=== PATIENT | female | born 1965 | race Caucasian/White ===

== ENCOUNTER 2020-03-07 09:56 | Outpatient (REF) | payer OTHER, SELFPAY ==
[2020-03-07 10:21] LABS: COVID-19 Test Negative (Negative)
== END 2020-03-07 09:57 | disposition home or self-care (01) ==
LOC: HO.LAB 09:56
PROVIDERS: Visit Provider Internal Medicine
DX: Z20.828 Contact with and (suspected) exposure to other viral communicable diseases (principal)
CPT/HCPCS: 87635

== ENCOUNTER → 2020-03-22 10:17 | Outpatient (BNVA) | payer OTHER, SELFPAY | PROVIDERS: PCP Internal Medicine; Visit Provider Nurse Practitioner Family | DX: R06.02 Shortness of breath (principal); R00.2 Palpitations; I49.3 Ventricular premature depolarization; J45.909 Unspecified asthma, uncomplicated | CPT/HCPCS: 93005 ==

== ENCOUNTER 2020-04-01 10:38 | Outpatient (REF) | payer OTHER, SELFPAY ==
[2020-04-01 10:57] LABS: COVID-19 Test Positive (Negative)
== END 2020-04-01 10:39 | disposition home or self-care (01) ==
LOC: HO.LAB 10:38
PROVIDERS: PCP Internal Medicine; Visit Provider Internal Medicine
DX: Z20.828 Contact with and (suspected) exposure to other viral communicable diseases (principal)
CPT/HCPCS: 87635; C9803

== ENCOUNTER → 2020-04-22 14:34 | Outpatient (REF) | payer OTHER, SELFPAY ==
--- NOTE | 2020-04-22 14:44 | CA_ITS ---
Transthoracic Echocardiogram Patient (Last, First, Middle): Marly Lemus, Gender: Female Date of : 1965 Age: 55 Procedure Date: 04/22/2020 Procedure Type: Transthoracic Echocardiogram Location: OP Height: 177.8 cm Weight: 79.38 kg BSA: 1.97 m2 Heart Rate: bpm BP: 110 / 70 mmHg Research Assistant: SLOANE Referring MD: Lizbeth Josue END WORKERZay Symptoms: R06.02 - Shortness of breath Study Quality: Good Conclusions: - Normal left ventricular size and systolic function. - Diastolic function is normal for age. - Normal right ventricular cavity size and systolic function. - There is moderate mitral annular calcification. - Mildly elevated right atrial pressure. - There is mild dilatation of the ascending aorta. Findings Left Ventricle Normal left ventricular size and systolic function. There is mildly increased left ventricular wall thickness. The visually estimated ejection fraction is between 55-60%. There is no evidence of regional wall motion abnormalities. Diastolic function is normal for age. Right Ventricle Normal right ventricular cavity size and systolic function. Atria Both atria are normal in size. There is no evidence of interatrial shunt by color Doppler. Aortic Valve There is a normal trileaflet aortic valve. There is no aortic valve stenosis. There is trace (trivial) aortic valve regurgitation. Mitral Valve There is moderate mitral annular calcification. There is trace mitral valve regurgitation. There is no mitral valve stenosis. Pulmonic Valve Normal pulmonic valve structure and function. There is trace pulmonic valve regurgitation. Tricuspid Valve Normal tricuspid valve structure and function. There is trace tricuspid valve regurgitation. Mildly elevated right atrial pressure. There is no evidence of pulmonary hypertension. Great Vessels There is mild dilatation of the ascending aorta. The visualized portions of the pulmonary artery and branches are normal. Venous The inferior vena cava is dilated and collapses greater than 50% with inspiration. Pericardium/Pleural There is no evidence of pericardial effusion. Prior Study Comparison Changes noted compared to prior study dated: 11/01/2014. Mild dilation of ascending aorta. Mildly increased left ventricular wall thickness. Measurements 2D Linear Measurements IVSd: 0.93 0.6-0.9/0.6-1.0 cm LVIDd: 4.62 3.9-5.3/4.2-5.9 cm LVIDd Index: 2.35 2.4-3.2/2.2-3.1 cm/m2 LVIDs: 2.68 2.0-3.6 cm LVPWd: 0.89 0.7-1.1 cm Ao Root: 3.50 2.1-3.5 cm LA Diam: 3.30 2.7-3.8/3.0-4.0 cm LAIDs Index: 1.68 1.5-2.3 cm/m2 LV Mass: 174.70 67-162/88-224 g LV Mass Index: 88.68 43-95/49-115 g/m2 LVOT Diam: 2.20 3.0+(-)1.3 cm Mitral Valve MV Pk E: 0.96 MV PK A: 0.67 MV Decel Time: 322.00 E/A: 1.40 E'Lateral: 10.80 E'Medial: 8.99 E/E' Med: 10.70 E/E' Lat: 8.90 PHT: 94.00 MVA PHT: 2.34 Decel [place]: 2.98 Aortic Valve AoV Pk Quinn: 1.29 AoV Mn Quinn: 0.85 AoV VTI: 0.33 AoV Pk Grad: 7.00 Aov Mn Grad: 3.00 MARITZA Cont.VTI: 2.90 LVOT LVOT Pk Quinn: 1.25 LVOT Mn Quinn: 0.71 LVOT VTI: 0.25 LVOT Pk Grad: 6.00 LVOT Mn Grad: 3.00 LVOT Diam: 2.20 LVOT Area: 3.80 Diastolic Function MV Pk E: 0.96 MV Pk A: 0.67 E/A: 1.40 E'Medial: 8.99 E/E' Med: 10.70 E' Laterial: 10.80 E/E' Lat: 8.90 Tricuspid Valve TR Pk Quinn: 1.87 TR Pk Grad: 14.00 RA Press: 15.00 RVSP: 29.00 Great Vessels Aorta Ao Root-2D: 3.50 2.0-3.7 cm Ao Asc: 3.70 2.1-3.4 cm Ao Arch: 3.20 Updated in Other Vendor System with Status of Final Jonathan Keller MD electronically signed on 04/24/2020 12:26:15 PM with status of Final
== END ==
LOC: HO.CARD 14:34
PROVIDERS: Visit Provider Nurse Practitioner Family
DX: R06.02 Shortness of breath (principal)
CPT/HCPCS: 93306

== ENCOUNTER → 2020-04-26 13:07 | Outpatient (REF) | payer OTHER, SELFPAY ==
--- NOTE | 2020-04-26 13:10 | ECG_ITS ---
Hook-up date: 2020-04-26 13:22:00 Duration: 24:05:00 Test Indications: Palpitations Medications: 11074 QRS complexes 1 Ventricular ectopics which represent <1 % of total QRS comp. 2 Supraventricular ectopics which represent <1 % of total QRS comp. * Paced QRS complexs which represent % of total QRS comp. VENTRICULAR ECTOPY 1 Isolated 0 Bigeminal Cycles 0 Couplets 0 Runs 0 Beats in Runs * Beats LONGEST at * BPM at :: -- * Beats FASTEST at * BPM at :: -- SUPRAVENTRICULAR ECTOPY 0 Isolated 1 Couplets 0 Runs 0 Beats in Runs * Beats LONGEST at * BPM at :: -- * Beats FASTEST at * BPM at :: -- HEART RATES 29 MIN at 04:52:13 2020-04-27 53 AVG 91 MAX at 15:04:17 2020-04-26 LONGEST RR 2.7440 secs at 05:45:22 2020-04-27 S-T LEVELS Channel 1 - 128 mm at 13:22:00 2020-04-26 - 128 mm at 13:22:00 2020-04-26 Channel 2 - 128 mm at 13:22:00 2020-04-26 - 128 mm at 13:22:00 2020-04-26 Channel 3 - 128 mm at 03:24:11 -- - 128 mm at 03:24:11 Basic rhythm Normal sinus rhythm Frequent Sinus bradycardia , 79% of time HR < 60 bpm Occasional Sinus bradycardia with 2nd degree A-V block (Mobitz II) , during sleep No dangerous dysrhythm periods No arrhythmic episodes Referred By: Cristofer Mathews Overread By: CRISTOFER MATHEWS MD
== END ==
LOC: HO.CARD 13:07
PROVIDERS: Visit Provider Internal Medicine Cardiovascular Disease
DX: R00.2 Palpitations (principal); R06.02 Shortness of breath
CPT/HCPCS: 93225; 93226

== ENCOUNTER 2020-05-02 12:51 | Outpatient (REF) | payer SELFPAY ==
[2020-05-02 15:27] LABS: SARS COV2 IgG Positive (Negative)
== END 2020-05-02 12:52 | disposition home or self-care (01) ==
LOC: HO.LNC 12:51
PROVIDERS: Visit Provider Pathology Anatomic Pathology & Clinical Pathology
DX: Z13.89 Encounter for screening for other disorder (principal)
CPT/HCPCS: 86769

== ENCOUNTER 2020-05-05 09:51 | Outpatient (REF) | payer SELFPAY ==
[2020-05-05 10:49] LABS: Cholesterol 190 mg/dL
== END 2020-05-05 09:52 | disposition home or self-care (01) ==
LOC: HO.LNC 09:51
PROVIDERS: Visit Provider Pathology Anatomic Pathology & Clinical Pathology
DX: Z00.00 Encounter for general adult medical examination without abnormal findings (principal); R79.89 Other specified abnormal findings of blood chemistry
CPT/HCPCS: 82465

== ENCOUNTER → 2020-05-10 10:21 | Outpatient (BNVA) | payer SELFPAY | PROVIDERS: PCP Internal Medicine; Visit Provider Nurse Practitioner Family | DX: Z76.89 Persons encountering health services in other specified circumstances (principal) ==

== ENCOUNTER → 2020-05-18 14:12 | Outpatient (REF) | payer OTHER, SELFPAY | LOC: HO.SL 14:12 | PROVIDERS: Visit Provider Nurse Practitioner Family | DX: G47.10 Hypersomnia, unspecified (principal); R06.83 Snoring; I44.1 Atrioventricular block, second degree; R00.1 Bradycardia, unspecified | CPT/HCPCS: 95806 ==

== ENCOUNTER 2020-11-21 11:05 | Outpatient (REF) | payer OTHER, SELFPAY ==
[2020-11-21 11:41] LABS: COVID-19 Test Negative (Negative)
[2020-11-21 14:50] LABS: MANUAL DIFF FLAG NO
[2020-11-21 15:03] LABS: Basophils Percent Auto 0.9 % (0-2); Eosinophils Absolute Auto 0.1 X10*3/uL (0.0-0.4); Eosinophils Percent Auto 1.7 % (0-4); Hematocrit 40.6 % (37-47); Hemoglobin 13.6 g/dl (12.0-16.0); Imm Gran Abs Auto 0.01 X10*3/uL (0.00-0.03); Imm Gran Pct Auto 0.2 % (0.0-0.4); Lymphocytes Absolute Auto 1.4 X10*3/uL (1.2-4.9); Lymphocytes Percent Auto 30.8 % (20-40); Mean Corpuscular HGB Conc 33.5 g/dl (31.0-35.0); Mean Corpuscular Hemoglobin 31.8 pg (27.0-33.0); Mean Corpuscular Volume 94.9 fL (80-98); Mean Platelet Volume 10.5 fL (9.4-12.3); Monocytes Absolute Auto 0.4 X10*3/uL (0.1-1.2); Monocytes Percent Auto 8.6 % (2-11); Neutrophils Absolute Auto 2.7 X10*3/uL (2.0-8.3); Neutrophils Percent Auto 57.8 % (45-73); Platelet Count 248 X10*3/uL (160-400); Red Blood Count 4.28 X10*6/uL (4.20-5.50); Red Cell Distribution Width 12.7 % (11.0-16.0); White Blood Count 4.7 X10*3/uL (4.8-10.8)
[2020-11-21 15:12] LABS: Alanine Aminotransferase 21 U/L (0-31); Albumin Level 4.4 g/dL (3.5-5.0); Alkaline Phosphatase 47 U/L (39-117); Anion Gap 11 (12-20); Aspartate Amino Transferase 20 U/L (5-31); Bilirubin Total 0.3 mg/dL (0.0-1.0); Blood Urea Nitrogen 21 mg/dL (9-16); C Reactive Protein 0.09 mg/dL (< or = 0.50); Calcium 9.9 mg/dL (8.4-10.2); Carbon Dioxide 29 mmol/L (22-29); Chloride 104 mmol/L (96-108); Estimated Glomerular Filt Rate > 60; Glucose Random 105 mg/dL (60-115); Potassium 4.5 mmol/L (3.3-5.1); Sodium 139 mmol/L (135-145); Total Protein 6.8 g/dL (6.5-8.0)
[2020-11-21 15:29] LABS: Free T4 (Free Thyroxine) 0.85 ng/dL (0.71-1.85)
[2020-11-21 15:37] LABS: Vitamin B12 709 pg/mL (200-900)
[2020-11-22 13:47] LABS: Lyme Abs Screen <0.90 index
== END 2020-11-21 11:06 | disposition home or self-care (01) ==
LOC: HO.LAB 11:05
PROVIDERS: Internal Medicine; Visit Provider Internal Medicine
DX: Z20.822 Contact with and (suspected) exposure to COVID-19 (principal)
CPT/HCPCS: 36415; 80053; 82607; 84439; 84443; 85025; 86140; 86617; 86618; 87635; C9803

== ENCOUNTER 2021-01-19 15:11 | Outpatient (REF) | payer OTHER, SELFPAY ==
--- NOTE | ~2021-01-19 | MM_ITS ---
EXAMINATION: MM SCREENING DIGITAL BREAST TOMOSYNTHESIS, BILATERAL CLINICAL INFORMATION: Screening. Asymptomatic. The lifetime risk of breast cancer based on the Tyrer-Cuzick Model is 9%. COMPARISON: Mammography: 01/14/2020, 01/08/2019, 11/27/2017, 10/03/2016 TECHNIQUE: Digital breast tomosynthesis is performed in both the craniocaudal and mediolateral oblique views along with computer-aided detection (CAD). Synthesized 2D images are generated from the tomosynthesis. Additional right CC view is provided FINDINGS: There are scattered areas of fibroglandular density (ACR BI-RADS breast composition Category b). There are no significant masses, abnormal calcifications, or other abnormalities. Parenchymal pattern is similar to prior studies. No developing density. No significant changes. MM/MM tomosynthesis screening BI IMPRESSION: No mammographic evidence of malignancy. ASSESSMENT: BI-RADS 1: Negative RECOMMENDATION: Routine annual mammography screening. This patient's information was entered into a reminder system with a target due date for their next mammogram.
== END 2021-01-19 15:12 | disposition home or self-care (01) ==
LOC: HO.MAMMO 15:11
PROVIDERS: Absent Provider Obstetrics & Gynecology; PCP Internal Medicine; Visit Provider Internal Medicine
DX: Z12.31 Encounter for screening mammogram for malignant neoplasm of breast (principal)
CPT/HCPCS: 77063; 77067

== ENCOUNTER → 2021-05-09 14:01 | Outpatient (BNVA) | payer OTHER, SELFPAY | PROVIDERS: PCP Internal Medicine; Referring Provider Internal Medicine; Visit Provider Internal Medicine Cardiovascular Disease | DX: I49.3 Ventricular premature depolarization (principal); R00.1 Bradycardia, unspecified | CPT/HCPCS: 93005 ==

== ENCOUNTER 2021-10-30 11:43 | Outpatient (REF) | payer OTHER, SELFPAY ==
--- NOTE | ~2021-10-30 | CT_ITS ---
EXAMINATION: CT ABDOMEN AND PELVIS WITHOUT CONTRAST CLINICAL INFORMATION: Right lower quadrant abdominal pain COMPARISON: CT abdomen pelvis 06/18/2016 TECHNIQUE: Multidetector volumetric imaging was performed from the superior aspect of the liver through the pubic symphysis. Sagittal and coronal reformatted images were obtained on the technologist's workstation. This CT examination was performed using dose optimization techniques as appropriate, variously including the following: *Automated exposure control *Adjustment of mA and/or kV according to patient size (this includes techniques or standardized protocols for targeted exams where dose is matched to indication/reason for exam; i.e. extremities or head) *Use of iterative reconstruction technique DLP: 539 mGy-cm FINDINGS: LUNG BASES: The visualized lung bases are unremarkable. LIVER, GALLBLADDER, AND BILIARY TREE: The liver is mildly enlarged measuring 18.9 cm in cephalocaudad dimension with normal shape and attenuation. No focal hepatic lesion or biliary ductal dilatation is present. The gallbladder is unremarkable with no evidence of radiopaque gallstones, gallbladder wall thickening, or obvious pericholecystic inflammatory changes. PANCREAS: Unremarkable. SPLEEN: Unremarkable. ADRENAL GLANDS: Unremarkable. KIDNEYS AND URETERS: The kidneys are normal in size, shape, and attenuation. There is a 0.8 cm cortical right midpole benign fat density angiomyolipoma present (3:32). No Hydronephrosis, hydroureter, or calculi seen. No perinephric stranding. BLADDER: Unremarkable. GASTROINTESTINAL TRACT: The small and large bowel are unremarkable. The appendix is not seen but there is no evidence of appendicitis. ABDOMINAL WALL: No significant hernia is appreciated. LYMPH NODES: Normal. VASCULAR: Unremarkable. PELVIC VISCERA: An anteverted uterus is present. There is a probable subserosal fibroid with tiny area of calcification between the inferior surface of the uterus and the bladder. Overall size of the uterus has decreased since 2017 when it was significantly bulkier. OSSEOUS STRUCTURES: Some minimal degenerative changes are present at L2-L3. CT/CT abdomen pelvis wo con IMPRESSION: 1. A definite etiology for the patient's right lower quadrant pain has not been found. 2. Fibroids are incidentally noted which have decreased in size when compared to the prior study. 3. Unchanged tiny benign right renal angiomyolipoma. Fleischner guidelines were followed.
[2021-10-30 13:44] LABS: MANUAL DIFF FLAG NO
[2021-10-30 13:56] LABS: Basophils Percent Auto 0.4 % (0-2); Eosinophils Absolute Auto 0.1 X10*3/uL (0.0-0.4); Eosinophils Percent Auto 2.1 % (0-4); Hematocrit 41.9 % (37.0-47.0); Hemoglobin 13.7 g/dl (12.0-16.0); Imm Gran Abs Auto 0.02 X10*3/uL (0.00-0.03); Imm Gran Pct Auto 0.4 % (0.0-0.4); Lymphocytes Absolute Auto 1.1 X10*3/uL (1.2-4.9); Lymphocytes Percent Auto 23.5 % (20-40); Mean Corpuscular HGB Conc 32.7 g/dl (31.0-35.0); Mean Corpuscular Hemoglobin 30.3 pg (27.0-33.0); Mean Corpuscular Volume 92.7 fL (80.0-98.0); Mean Platelet Volume 10.5 fL (9.4-12.3); Monocytes Absolute Auto 0.6 X10*3/uL (0.1-1.2); Monocytes Percent Auto 12.8 % (2-11); Neutrophils Percent Auto 60.8 % (45-73); Platelet Count 234 X10*3/uL (160-400); Red Blood Count 4.52 X10*6/uL (4.20-5.50); Red Cell Distribution Width 12.6 % (11.0-16.0); White Blood Count 4.9 X10*3/uL (4.8-10.8)
[2021-10-30 14:03] LABS: Appearance Urine CLEAR; Color Urine YELLOW; Glucose Urine UA NEG (NEG); Leukocyte Esterase Urine NEG (NEG); Nitrite Urine NEG (NEG); Specific Gravity - Urine 1.015 (1.005-1.025); Urine Blood NEG (NEG); Urine Ketones NEG (NEG); Urine Protein NEG (NEG-TRACE)
[2021-10-30 14:48] LABS: Alanine Aminotransferase 18 U/L (0-31); Albumin Level 4.3 g/dL (3.5-5.0); Alkaline Phosphatase 47 U/L (39-117); Anion Gap 13 (12-20); Aspartate Amino Transferase 16 U/L (5-31); Bilirubin Total 0.8 mg/dL (0.0-1.0); Blood Urea Nitrogen 17 mg/dL (9-16); C Reactive Protein 2.08 mg/dL (< or = 0.50); Calcium 9.4 mg/dL (8.4-10.2); Carbon Dioxide 27 mmol/L (22-29); Chloride 105 mmol/L (96-108); Estimated Glomerular Filt Rate > 60; Glucose Random 82 mg/dL (60-115); Potassium 4.6 mmol/L (3.3-5.1); Sodium 140 mmol/L (135-145); Total Protein 6.4 g/dL (6.5-8.0)
== END 2021-10-30 11:44 | disposition home or self-care (01) ==
LOC: HO.10HDL 11:43
PROVIDERS: Visit Provider Internal Medicine
DX: R10.31 Right lower quadrant pain (principal)
CPT/HCPCS: 36415; 74176; 80053; 81003; 85025; 86140; 87086

== ENCOUNTER 2022-01-12 04:26 | Observation (INO) | payer OTHER, SELFPAY ==
--- NOTE | ~2022-01-12 | CT_ITS ---
EXAMINATION: CT ANGIOGRAM NECK AND HEAD CLINICAL INFORMATION: Dizziness COMPARISON: None. TECHNIQUE: Initial noncontrast head CT was performed. Test bolus sequences followed by intravenous administration 70 mL of Omnipaque 350. Helical imaging was performed in the axial plane from the thoracic inlet to the skull vertex. Delayed postcontrast imaging of the head was also performed. The data was processed at the applied technologist's workstation for generation of MIP sequences. Angled MIPs and volume rendered reformatted images were also generated at an offline 3D workstation. Stenoses are assessed in accordance with NASCET criteria unless otherwise indicated. DOSE LOWERING TECHNIQUES: This CT examination was performed using dose optimization techniques as appropriate, variously including the following: - Automated exposure control - Adjustment of mA and/or kV according to patient size (this includes techniques or standardized protocols for targeted exams were dose is matched to indication/reason for exam; i.e. extremities or head) - Use of iterative reconstruction technique DLP: 2272 mGy-cm FINDINGS: Neck CTA: There is a classic 3 vessel branching pattern of the aortic arch. Normal appearance of the visualized aortic arch and proximal branches. No evidence of stenosis at the branch origins. Both vertebral arteries are widely patent throughout their extracranial cervical course. There is mild calcification at the left common carotid artery bifurcation, without significant stenosis. Otherwise normal appearance of the common and internal carotid arteries without focal stenosis. Brain CTA: Normal appearance of the intradural vertebral arteries. Normal appearance of the basilar and superior cerebellar arteries. Normally opacified posterior cerebral arteries bilaterally. Normal appearance of the intradural internal carotid arteries without focal stenosis. Normal appearance of the anterior cerebral and middle cerebral arteries without focal occlusion or stenosis. Normal anterior communicating artery. Normal arborization of the middle cerebral arteries. CT Head: No intracranial mass, hemorrhage, extra-axial collection, or midline shift. The richardson-white matter differentiation is preserved. No pathologic intra-axial enhancement or regional oligemia. No hydrocephalus. Slight opacification of the right maxillary sinus. Mastoid air cells are well aerated. CT Neck: The thyroid gland and remaining cervical soft tissues are normal in appearance. There are degenerative changes of the cervical spine including disc space narrowing and endplate osteophyte formation of the lower cervical spine and multilevel facet arthropathy. Upper Chest: No abnormalities in the visualized lung apices or upper mediastinum. CT/CT angio head neck IMPRESSION: No hemodynamically significant stenosis in the major arteries of the neck. No large vessel occlusion or significant stenosis in the intracranial circulation.
[2022-01-12 04:41] VITALS: BP 119/88; PULSE 50; RESP 16; TEMP 36.1; O2SAT 98; BMI 25.1
[2022-01-12 05:11] LABS: COVID-19 Test Negative (Negative)
--- NOTE | 2022-01-12 05:13 | ECG_ITS ---
Test Reason : DIZZINESS Blood Pressure : / mmHG Vent. Rate : 042 BPM Atrial Rate : 048 BPM P-R Int : 000 ms QRS Dur : 098 ms QT Int : 494 ms P-R-T Axes : 059 -12 034 degrees QTc Int : 412 ms Sinus bradycardia with 2nd degree A-V block (Mobitz I) Abnormal ECG No previous ECGs available Referred By: Chelita Vizcaino Electronically Signed By:JORGE HUIZAR
--- NOTE | 2022-01-12 05:36 | ED_ITS ---
HPI - Dizziness General Chief Complaint: Dizziness Stated Complaint: vomiting lightheaded Time Seen by Provider: 01/12/22 04:42 Source: patient and old records reviewed Mode of arrival: ambulatory Limitations: no limitations History of Present Illness HPI Narrative: 56 yo female with hx of PVCs, exercise induced asthma, bradycardia and Mobitz type I second degree AV block notes she woke up from sleep at 330 with the room spinning and she felt nauseated. She has had mild URI symptoms recently but otherwise has been okay. She denies CP/SOB. She went to dinner last night. No recent falls or trauma. She just felt off. No other symptoms. Spinning is worse with position changes or looking to the left. MD elicited complaint: dizziness and lightheadedness Onset (ago): hour(s) (330am today) Timing: sudden onset Severity: moderate Description: room spinning Context: change in body position History of similar symptoms: No Exacerbating factors: movement/ambulation and change in body position Relieving factors: remaining still, rest and lying down Associated symptoms: nausea and nasal congestion Related Data Home Medications Medication Instructions Recorded Confirmed albuterol sulfate 90 mcg/actuation 2 puff inhalation DAILY 03/22/20 05/09/21 aerosol inhaler aspirin 81 mg tablet,delayed 81 mg PO DAILY 03/22/20 05/09/21 release (Adult Low Dose Aspirin) calcium carbonate 500 mg calcium 500 mg PO BID 03/22/20 05/09/21 (1,250 mg) tablet (Calcium 500) multivitamin 1 cap PO DAILY 03/22/20 05/09/21 Allergies Allergy/AdvReac Type Severity Reaction Status Date / Time latex [LATEX] Allergy Intermediate RASH Verified 05/09/21 14:12 Sulfa (Sulfonamide Allergy Unknown UNKNOWN Verified 05/09/21 14:12 Antibiotics) [Sulfa(Sulfonamide Antibiotics)] Review of Systems Review of Systems: Constitutional : No Weight loss, No Fever, No Chills ENT/Mouth : No sore throat, pos Rhinorrhea Eyes: No Eye Pain, No Swelling Cardiovascular : no Chest Pain, no SOB, no Dyspnea on Exertion, No Orthopnea, No Edema, No Palpitations Respiratory : No Cough, No Sputum Gastrointestinal : pos Nausea, No Vomiting, No Diarrhea, No abdominal Pain, No Hematochezia, No Melena Genitourinary : No Dysuria, No Urinary Frequency Musculoskeletal : No joint pain, No Myalgias, No Joint Swelling Skin : No Skin Lesions, No rash Neuro : No Weakness, No Numbness, pos Dizziness, No Headache Psych : No Anxiety/Panic, No Depression Heme/Lymph: No Bruising, No Lymphadenopathy Endocrine : No Polyuria, No Polydipsia All other systems reviewed and are negative [facility] Past Medical History Attestation statement: The following information was validated with the patient. Source: old records reviewed Medical History Exercise-induced asthma Mobitz type 1 second degree atrioventricular block Palpitation PVC (premature ventricular contraction) Shortness of breath Surgical History H/O eye surgery Hx of tonsillectomy [place] teeth removed Family History Family History Paternal Grandfather No problems noted. Mother Rheumatic arteritis Eczema Father Lung cancer Social History Social History Alcohol intake: current Alcohol intake frequency: a few times a month Patient Tobacco Use Status: Never used Tobacco Advance Directives: No Advance Directives Information Provided: Yes Physical Exam Vital Signs: Vital Signs: Last Vital Signs Temp 97 F 01/12/22 04:41 Pulse 50 01/12/22 04:41 Resp 16 01/12/22 04:41 BP 119/88 01/12/22 04:41 Pulse Ox 98 01/12/22 04:41 O2 Del Method 01/12/22 04:41 BMI result Body Mass Index 25.1 Appearance: Alert. Oriented X3. No acute distress. Eyes: Pupils equal, round and reactive to light. slight nystagmus when looking to left, turning head elicits a response of dizziness and nausea ENT: Pharynx normal. TMs normal bilaterally Neck: Normal inspection. Neck supple. CVS: bradycardic heart rate and rhythm. Pulses normal. Respiratory: No respiratory distress. Breath sounds normal. Abdomen: Soft and non-tender. Skin: Skin warm and dry. Normal skin color. Normal skin turgor. Extremities: No lower extremity edema. No calf ttp Neuro: Oriented X 3. No motor deficit. No sensory deficit. no drift, no ataxia NIH Stroke Scale Internal: Initial- Upon Arrival Level of Consciousness: Alert Level of Consciousness Questions: Answers both questions correctly Level of Consciousness Commands: Performs both tasks correctly Best Gaze: Normal Visual: No visual loss Facial Palsy: Normal Motor Arm (Right): No drift Motor Arm (Left): No drift Motor Leg (Right): No drift Motor Leg (Left): No drift Limb Ataxia: Absent Sensory: Normal Best Language: No aphasia Dysarthia: Normal Extinction and Inattention: No abnormality Score: 0 Course Course Course Narrative: signed out to Dr. Reich [facility] - Dizziness MDM Narrative Medical decision making narrative: 56 yo female with hx of PVCs, exercise induced asthma, bradycardia and Mobitz type I second degree AV block here with c/o positional dizziness (room spinning) reproduceable on exam with turning head and has noted mild nystagmus when looking to the left. No other neurologic findings. No ataxia. Could be vertigo. Has chronic low HR - to the point that HR goes down into the 30s has been seen by Cardiology in the past for the same. Will obtain basic labs, troponin x 2, CTA of head and neck. Doubt posterior stroke at this time given lack of additional findings - NIH 0. Lab Data Result diagrams: 01/12/22 05:32 01/12/22 05:32 Labs: Lab Results 01/12/22 01/12/22 01/12/22 Range/Units 04:52 05:32 05:32 WBC 4.6 L (4.8-10.8) X10*3/uL RBC 4.44 (4.20-5.50) X10*6/uL Hgb 13.7 (12.0-16.0) g/dl Hct 40.4 (37.0-47.0) % MCV 91.0 (80.0-98.0) fL MCH 30.9 (27.0-33.0) pg MCHC 33.9 (31.0-35.0) g/dl RDW 12.3 (11.0-16.0) % Plt Count 253 (160-400) X10*3/uL MPV 9.6 (9.4-12.3) fL Immature Gran % (Auto) 0.7 H (0.0-0.4) % Neut % (Auto) 61.0 (45-73) % Lymph % (Auto) 23.8 (20-40) % [place] % (Auto) 11.4 H (2-11) % Eos % (Auto) 2.2 (0-4) % Baso % (Auto) 0.9 (0-2) % Lymph # (Auto) 1.1 L (1.2-4.9) X10*3/uL [place] # (Auto) 0.5 (0.1-1.2) X10*3/uL Eos # (Auto) 0.1 (0.0-0.4) X10*3/uL Baso # (Auto) 0.0 (0.0-0.2) X10*3/uL Abs Immat Gran (auto) 0.03 (0.00-0.03) X10*3/uL Absolute Neuts (auto) 2.8 (2.0-8.3) x10*3/uL Absolute Nucleated RBC 0.000 (0.0-0.012) X10*3/uL Nucleated RBC % (auto) 0.0 (0.0-0.2) /100WBC PT 11.0 (10.0-13.1) SEC INR 1.0 (0.9-1.1) Sodium (135-145) mmol/L Potassium (3.3-5.1) mmol/L Chloride (96-108) mmol/L Carbon Dioxide (22-29) mmol/L Anion Gap (12-20) BUN (9-16) mg/dL Creatinine (0.5-1.4) mg/dL Estim Creat Clear Calc Estimated GFR Random Glucose (60-115) mg/dL Calcium (8.4-10.2) mg/dL Magnesium (1.6-2.6) mg/dL Total Bilirubin (0.0-1.0) mg/dL Direct Bilirubin (0.0-0.5) mg/dL AST (5-31) U/L ALT (0-31) U/L Alkaline Phosphatase (39-117) U/L Troponin I High Sens (<3.5-17.0) ng/L Total Protein (6.5-8.0) g/dL Albumin (3.5-5.0) g/dL COVID-19 (EMILE) Negative (Negative) COVID-19 Clin Com See Note 09/09/22 09/09/22 Range/Units 05:32 05:32 WBC (4.8-10.8) X10*3/uL RBC (4.20-5.50) X10*6/uL Hgb (12.0-16.0) g/dl Hct (37.0-47.0) % MCV (80.0-98.0) fL MCH (27.0-33.0) pg MCHC (31.0-35.0) g/dl RDW (11.0-16.0) % Plt Count (160-400) X10*3/uL MPV (9.4-12.3) fL Immature Gran % (Auto) (0.0-0.4) % Neut % (Auto) (45-73) % Lymph % (Auto) (20-40) % [place] % (Auto) (2-11) % Eos % (Auto) (0-4) % Baso % (Auto) (0-2) % Lymph # (Auto) (1.2-4.9) X10*3/uL [place] # (Auto) (0.1-1.2) X10*3/uL Eos # (Auto) (0.0-0.4) X10*3/uL Baso # (Auto) (0.0-0.2) X10*3/uL Abs Immat Gran (auto) (0.00-0.03) X10*3/uL Absolute Neuts (auto) (2.0-8.3) x10*3/uL Absolute Nucleated RBC (0.0-0.012) X10*3/uL Nucleated RBC % (auto) (0.0-0.2) /100WBC PT (10.0-13.1) SEC INR (0.9-1.1) Sodium 142 (135-145) mmol/L Potassium 4.2 (3.3-5.1) mmol/L Chloride 106 (96-108) mmol/L Carbon Dioxide 25 (22-29) mmol/L Anion Gap 15 (12-20) BUN 22 H (9-16) mg/dL Creatinine 0.78 (0.5-1.4) mg/dL Estim Creat Clear Calc 88.1 Estimated GFR > 60 Random Glucose 108 (60-115) mg/dL Calcium 8.9 (8.4-10.2) mg/dL Magnesium 2.2 (1.6-2.6) mg/dL Total Bilirubin 0.4 (0.0-1.0) mg/dL Direct Bilirubin < 0.2 (0.0-0.5) mg/dL AST 18 (5-31) U/L ALT 27 (0-31) U/L Alkaline Phosphatase 46 (39-117) U/L Troponin I High Sens < 3.5 (<3.5-17.0) ng/L Total Protein 6.1 L (6.5-8.0) g/dL Albumin 4.1 (3.5-5.0) g/dL COVID-19 (EMILE) (Negative) COVID-19 Clin Com ECG Data Attestation: I personally reviewed and interpreted this ECG as follows: ECG interpretation date: 01/12/22 ECG interpretation time: 05:38 Interpretation: Rate: 42 Rhythm: sinus bradycardia [place]: normal Normal P waves. varying IRON. Normal QRS complex. ST T wave : normal no [place] qTC: normal prior studies: no acute ischemia The study has been interpreted contemporaneously by me. . Discharge Plan Discharge Clinical Impression: Dizziness Patient Disposition: Still a Patient Prescriptions: No Action albuterol sulfate 90 mcg/actuation HFA aerosol inhaler 2 puff inhalation DAILY multivitamin Capsule 1 cap PO DAILY calcium carbonate [Calcium 500] 500 mg calcium (1,250 mg) tablet 500 mg PO BID aspirin [Adult Low Dose Aspirin] 81 mg tablet,delayed release (DR/EC) 81 mg PO DAILY
[2022-01-12 05:38] LABS: MANUAL DIFF FLAG NO
[2022-01-12] MEDS: ondansetron HCL 4 MG/2 ML VIAL IVPUSH (05:38)
[2022-01-12] MEDS: 0.9 % Sodium Chloride 1,000 ML 999 ML IVCONT (05:38)
[2022-01-12] MEDS: Meclizine HCl 25 MG TABLET PO (05:38)
[2022-01-12 05:39] LABS: Basophils Percent Auto 0.9 % (0-2); Eosinophils Absolute Auto 0.1 X10*3/uL (0.0-0.4); Eosinophils Percent Auto 2.2 % (0-4); Hematocrit 40.4 % (37.0-47.0); Hemoglobin 13.7 g/dl (12.0-16.0); Imm Gran Abs Auto 0.03 X10*3/uL (0.00-0.03); Imm Gran Pct Auto 0.7 % (0.0-0.4); Lymphocytes Absolute Auto 1.1 X10*3/uL (1.2-4.9); Lymphocytes Percent Auto 23.8 % (20-40); Mean Corpuscular HGB Conc 33.9 g/dl (31.0-35.0); Mean Corpuscular Hemoglobin 30.9 pg (27.0-33.0); Mean Platelet Volume 9.6 fL (9.4-12.3); Monocytes Absolute Auto 0.5 X10*3/uL (0.1-1.2); Monocytes Percent Auto 11.4 % (2-11); Neutrophils Absolute Auto 2.8 x10*3/uL (2.0-8.3); Platelet Count 253 X10*3/uL (160-400); Red Blood Count 4.44 X10*6/uL (4.20-5.50); Red Cell Distribution Width 12.3 % (11.0-16.0); White Blood Count 4.6 X10*3/uL (4.8-10.8)
[2022-01-12 05:56] LABS: Troponin-I High Sensitivity < 3.5 ng/L (<3.5-17.0)
[2022-01-12 06:01] LABS: Alanine Aminotransferase 27 U/L (0-31); Albumin Level 4.1 g/dL (3.5-5.0); Alkaline Phosphatase 46 U/L (39-117); Anion Gap 15 (12-20); Aspartate Amino Transferase 18 U/L (5-31); Bilirubin Direct < 0.2 mg/dL (0.0-0.5); Bilirubin Total 0.4 mg/dL (0.0-1.0); Blood Urea Nitrogen 22 mg/dL (9-16); Calcium 8.9 mg/dL (8.4-10.2); Carbon Dioxide 25 mmol/L (22-29); Chloride 106 mmol/L (96-108); Creatinine Clr Calc Pharmacy 88.1; Estimated Glomerular Filt Rate > 60; Glucose Random 108 mg/dL (60-115); Magnesium 2.2 mg/dL (1.6-2.6); Potassium 4.2 mmol/L (3.3-5.1); Sodium 142 mmol/L (135-145); Total Protein 6.1 g/dL (6.5-8.0)
[2022-01-12] MEDS: iohexoL 350 MG/ML 100 ML INFUS..BTL IV (06:31)
[2022-01-12 06:53] VITALS: BP 125/68; PULSE 46; RESP 14; O2SAT 98
[2022-01-12 08:01] LABS: Troponin-I High Sensitivity < 3.5 ng/L (<3.5-17.0)
[2022-01-12 08:12] VITALS: BP 138/74; PULSE 51; RESP 16; O2SAT 97
--- NOTE | 2022-01-12 09:30 | P.HPHOSP_ITS ---
History of Present Illness Date of Service: 01/12/22 Chief Complaint: dizziness This is a relatively healthy 56 year old female who presents to the ED with sudden onset of dizziness during the night prior to admission. The patient, who has a history of sinus doug / Mobitz type I, reports that she was in her usual state of health the day prior. She did endorse that she was recovering from mild URI symptoms but denied any tinnitus, pain or full of her ears bilaterally. She reports that she felt as if the room was spinning and also felt as if she was going to pass out. She noted that the dizziness was most pronounced when she turned her head to the left. She reports taking some baby aspirin during the episode (states in case she was having an ID) but she subsequently vomited. In the ED, her work up revealed a CTA of head/neck without any LVO and no stenosis of the major neck and intracranial circulation. She was given IVF, zofran and meclizine. Her symptoms have improved but now resolved. In light of her cardiac history -- she will be observed with cardiology and neurology consults. Review of Systems Review of Systems: negative except HPI [facility] Medical History Exercise-induced asthma Mobitz type 1 second degree atrioventricular block Palpitation PVC (premature ventricular contraction) Shortness of breath Family History Paternal Grandfather No problems noted. Mother Rheumatic arteritis Eczema Father Lung cancer Surgical History H/O eye surgery Hx of tonsillectomy [place] teeth removed Social History Alcohol intake: current Alcohol intake frequency: a few times a month Patient Tobacco Use Status: Never used Tobacco Use of substances other than those prescribed or required for medical reasons: No Advance Directives: No Advance Directives Information Provided: Yes Meds Allergies Allergy/AdvReac Type Severity Reaction Status Date / Time latex [LATEX] Allergy Intermediate RASH Verified 05/09/21 14:12 Sulfa (Sulfonamide Allergy Unknown UNKNOWN Verified 05/09/21 14:12 Antibiotics) [Sulfa(Sulfonamide Antibiotics)] Active Medications: Current Medications Sodium Chloride (0.9 % Sodium Chloride Flush 3 Ml Syringe) 3 ml IVFLUSH QSHIFT [facility] Home Medications Medication Instructions Recorded Confirmed Last Taken Type albuterol sulfate 90 mcg/actuation 2 puff inhalation DAILY 03/22/20 05/09/21 Unknown History aerosol inhaler aspirin 81 mg tablet,delayed 81 mg PO DAILY 03/22/20 05/09/21 Unknown History release (Adult Low Dose Aspirin) calcium carbonate 500 mg calcium 500 mg PO BID 03/22/20 05/09/21 Unknown History (1,250 mg) tablet (Calcium 500) multivitamin 1 cap PO DAILY 03/22/20 05/09/21 Unknown History Physical Exam Vital Signs and Narrative: Vital Signs: Last Vital Signs Temp 97 F 01/12/22 04:41 Pulse 51 01/12/22 08:12 Resp 16 01/12/22 08:12 BP 138/74 01/12/22 08:12 Pulse Ox 97 01/12/22 08:12 O2 Del Method 01/12/22 08:12 BMI result Body Mass Index 25.1 Const: Other: Constitutional - Awake and Alert, No apparent distress Eyes - PERRLA, EOMI Cardiovascular - S1S2, RRR, No edema Respiratory - Normal lung expansion, Normal respiratory effort, No respiratory distress, CTA bilaterally Gastrointestinal - NT / ND; +BS; No rebound or guarding - No CVA tenderness Extremities - no calf tenderness bilaterally, no swelling Musculoskeletal - Normal inspection, normal ROM Skin - Warm/Dry Neurological - Alert & oriented x3, No focal deficit; nystagmus with eye movement of the left Psychological - Appropriate affect Results Labs CBC and Chem 7: 01/12/22 05:32 01/12/22 05:32 Labs: Laboratory Results - last 24 hr 01/12/22 01/12/22 01/12/22 04:52 05:32 05:32 MCV 91.0 MCH 30.9 MCHC 33.9 RDW 12.3 Plt Count 253 MPV 9.6 Immature Gran % (Auto) 0.7 H Neut % (Auto) 61.0 Lymph % (Auto) 23.8 [place] % (Auto) 11.4 H Eos % (Auto) 2.2 Baso % (Auto) 0.9 Lymph # (Auto) 1.1 L [place] # (Auto) 0.5 Eos # (Auto) 0.1 Baso # (Auto) 0.0 Abs Immat Gran (auto) 0.03 Absolute Neuts (auto) 2.8 Absolute Nucleated RBC 0.000 Nucleated RBC % (auto) 0.0 PT 11.0 INR 1.0 Anion Gap Estim Creat Clear Calc Estimated GFR Random Glucose Calcium Magnesium Total Bilirubin Direct Bilirubin AST ALT Alkaline Phosphatase Total Protein Albumin COVID-19 (EMILE) Negative COVID-19 Clin Com See Note 01/12/22 05:32 MCV MCH MCHC RDW Plt Count MPV Immature Gran % (Auto) Neut % (Auto) Lymph % (Auto) [place] % (Auto) Eos % (Auto) Baso % (Auto) Lymph # (Auto) [place] # (Auto) Eos # (Auto) Baso # (Auto) Abs Immat Gran (auto) Absolute Neuts (auto) Absolute Nucleated RBC Nucleated RBC % (auto) PT INR Anion Gap 15 Estim Creat Clear Calc 88.1 Estimated GFR > 60 Random Glucose 108 Calcium 8.9 Magnesium 2.2 Total Bilirubin 0.4 Direct Bilirubin < 0.2 AST 18 ALT 27 Alkaline Phosphatase 46 Total Protein 6.1 L Albumin 4.1 COVID-19 (EMILE) COVID-19 Clin Com Imaging Radiologist's Impressions: Impressions Head/Neck CTA 01/12/22 06:41 IMPRESSION: No hemodynamically significant stenosis in the major arteries of the neck. No large vessel occlusion or significant stenosis in the intracranial circulation. Assessment and Plan (1) Dizziness: Status: Acute (2) Mobitz (type) I (Wenckebach's) atrioventricular block: Status: Acute Plan This is a 56 year old female with a PMH of sinus doug/mobitz type I who presents with sudden onset dizziness. She has partially responded to Meclizine but in light of her cardiac history, will observe her over night on monitor. 1. Dizziness, likely peripheral vertigo PRN meclizine CTA head/neck negative will consult Neurology; further work up pending their evaluation 2. Mobitz type I tele reviewed monitor on tele for now Cardiology will be seeing the patient Full Code DVT pptx -- low risk, early ambulation Quality Stroke Does the patient have a stroke diagnosis?: No VTE Prior VTE?: No VTE Risk Level:: Medical - low VTE Device Contraindication: Treatment Not Indicated VTE Drug Contraindication: Treatment Not Indicated
[2022-01-12 09:56] LABS: Appearance Urine Clear; Color Urine Yellow; Glucose Urine UA Negative (Negative); Leukocyte Esterase Urine Negative (Negative); Nitrite Urine Negative (Negative); PH 7.5 (5.0-9.0); Specific Gravity - Urine 1.015 (1.005-1.025); Urine Blood Negative (Negative); Urine Ketones Negative (Negative); Urine Protein Negative (Neg-Trace)
--- NOTE | 2022-01-12 10:01 | PHA.MEDREC ---
Pharmacy Consult ? Medication Reconciliation Pharmacy has completed the medication reconciliation.Spoke with patient in ED.
[2022-01-12 10:28] VITALS: BP 130/61; PULSE 52; RESP 16; O2SAT 98
--- NOTE | 2022-01-12 10:41 | P.CONCA_ITS ---
History of Present Illness History of Present Illness Date of Service: 01/12/22 Requesting physician: Susana Reich Chief complaint: DIZZINESS, bradycardia Narrative: 56-year-old female who is here for dizziness and bradycardia. She has known history of sinus bradycardia and first-degree AV block. She has Holter monitoring in the past which showed second-degree Mobitz type 2 heart block when she was sleeping but during the daytime she just had sinus bradycardia and was asymptomatic. She is physically active and exercises regularly and her bradycardia was felt to be related to high vagal tone due to exercise. She is now presenting with sudden onset dizziness. She is describing vertigo. The symptoms are worse when she turns her head to the left. She had some sweating at home also. Here she was noted to be off and on bradycardic but mostly the telemetry is showing Wenckebach. No concerning heart block noticed otherwise. FORMERLY [facility] Past Medical History Medical History Exercise-induced asthma Mobitz type 1 second degree atrioventricular block Palpitation PVC (premature ventricular contraction) Shortness of breath Family History Family History Paternal Grandfather No problems noted. Mother Rheumatic arteritis Eczema Father Lung cancer Surgical History Surgical History H/O eye surgery Hx of tonsillectomy [place] teeth removed Social History Social History Alcohol intake: current Alcohol intake frequency: a few times a month Patient Tobacco Use Status: Never used Tobacco Use of substances other than those prescribed or required for medical reasons: No Advance Directives: No Advance Directives Information Provided: Yes Meds Allergies Allergy/AdvReac Type Severity Reaction Status Date / Time latex [LATEX] Allergy Intermediate RASH Verified 05/09/21 14:12 Sulfa (Sulfonamide Allergy Unknown UNKNOWN Verified 05/09/21 14:12 Antibiotics) [Sulfa(Sulfonamide Antibiotics)] Active Medications: Current Medications Meclizine HCl (Meclizine Hcl 25 Mg Tablet) 25 mg PO Q6H PRN PRN Reason: Vertigo Pharmacy Consult (Consult Rx Perform Med Rec) 1 each MISCELLANE ONCE PRN PRN Reason: Consult order Sodium Chloride (0.9 % Sodium Chloride Flush 3 Ml Syringe) 3 ml IVFLUSH QSHIFT [facility] Home Medications Medication Instructions Recorded Confirmed Last Taken Type calcium carbonate 600 mg-vitamin 1 tab PO DAILY 01/12/22 01/12/22 01/11/22 History D3 5 mcg (200 unit) tablet lactobacillus comb no.10 20 20,000 mmu cells PO DAILY 01/12/22 01/12/22 01/11/22 History billion cell capsule (Probiotic) loratadine 10 mg tablet 10 mg PO DAILY 01/12/22 01/12/22 01/11/22 History multivitamin 1 tab PO DAILY 01/12/22 01/12/22 01/11/22 History naproxen sodium 220 mg capsule 220 mg PO DAILY 01/12/22 01/12/22 01/11/22 History (Aleve) triamcinolone acetonide 55 mcg 1 spray intranasal DAILY 01/12/22 01/12/22 01/11/22 History nasal spray aerosol (Nasacort) vitamin B complex 1 tab PO DAILY 01/12/22 01/12/22 01/11/22 History Physical Exam Vital Signs: Vital Signs: Last Vital Signs Temp 97 F 01/12/22 04:41 Pulse 52 01/12/22 10:28 Resp 16 01/12/22 10:28 BP 130/61 01/12/22 10:28 Pulse Ox 98 01/12/22 10:28 O2 Del Method 01/12/22 10:28 BMI result Body Mass Index 25.1 GENERAL APPEARANCE: in no acute distress, pleasant. NECK: no carotid bruit, no jugular venous distention. SKIN: no suspicious lesions, warm and dry. HEART: no murmurs, regular rate and rhythm. LUNGS: clear to auscultation bilaterally. ABDOMEN: soft, nontender. EXTREMITIES: no edema. PERIPHERAL PULSES: equal. NEUROLOGIC: No gross deficits, AAO X 3. Nystagmus on leftward gaze. Objective Labs and Meds Result diagrams: 01/12/22 05:32 01/12/22 05:32 Lab results: Laboratory Results - last 24 hr 01/12/22 01/12/22 01/12/22 04:52 05:32 05:32 WBC 4.6 L RBC 4.44 Hgb 13.7 Hct 40.4 MCV 91.0 MCH 30.9 MCHC 33.9 RDW 12.3 Plt Count 253 MPV 9.6 Immature Gran % (Auto) 0.7 H Neut % (Auto) 61.0 Lymph % (Auto) 23.8 [place] % (Auto) 11.4 H Eos % (Auto) 2.2 Baso % (Auto) 0.9 Lymph # (Auto) 1.1 L [place] # (Auto) 0.5 Eos # (Auto) 0.1 Baso # (Auto) 0.0 Abs Immat Gran (auto) 0.03 Absolute Neuts (auto) 2.8 Absolute Nucleated RBC 0.000 Nucleated RBC % (auto) 0.0 PT 11.0 INR 1.0 Sodium Potassium Chloride Carbon Dioxide Anion Gap BUN Creatinine Estim Creat Clear Calc Estimated GFR Random Glucose Calcium Magnesium Total Bilirubin Direct Bilirubin AST ALT Alkaline Phosphatase Troponin I High Sens Total Protein Albumin Urine Color Urine Appearance Urine pH Ur Specific [place] Urine Protein Urine Glucose (UA) Urine Ketones Urine Blood Urine Nitrite Ur Leukocyte Esterase COVID-19 (EMILE) Negative COVID-19 Clin Com See Note 01/12/22 01/12/22 01/12/22 05:32 05:32 07:37 WBC RBC Hgb Hct MCV MCH MCHC RDW Plt Count MPV Immature Gran % (Auto) Neut % (Auto) Lymph % (Auto) [place] % (Auto) Eos % (Auto) Baso % (Auto) Lymph # (Auto) [place] # (Auto) Eos # (Auto) Baso # (Auto) Abs Immat Gran (auto) Absolute Neuts (auto) Absolute Nucleated RBC Nucleated RBC % (auto) PT INR Sodium 142 Potassium 4.2 Chloride 106 Carbon Dioxide 25 Anion Gap 15 BUN 22 H Creatinine 0.78 Estim Creat Clear Calc 88.1 Estimated GFR > 60 Random Glucose 108 Calcium 8.9 Magnesium 2.2 Total Bilirubin 0.4 Direct Bilirubin < 0.2 AST 18 ALT 27 Alkaline Phosphatase 46 Troponin I High Sens < 3.5 < 3.5 Total Protein 6.1 L Albumin 4.1 Urine Color Urine Appearance Urine pH Ur Specific [place] Urine Protein Urine Glucose (UA) Urine Ketones Urine Blood Urine Nitrite Ur Leukocyte Esterase COVID-19 (EMILE) COVID-19 Clin Com 01/12/22 09:48 WBC RBC Hgb Hct MCV MCH MCHC RDW Plt Count MPV Immature Gran % (Auto) Neut % (Auto) Lymph % (Auto) [place] % (Auto) Eos % (Auto) Baso % (Auto) Lymph # (Auto) [place] # (Auto) Eos # (Auto) Baso # (Auto) Abs Immat Gran (auto) Absolute Neuts (auto) Absolute Nucleated RBC Nucleated RBC % (auto) PT INR Sodium Potassium Chloride Carbon Dioxide Anion Gap BUN Creatinine Estim Creat Clear Calc Estimated GFR Random Glucose Calcium Magnesium Total Bilirubin Direct Bilirubin AST ALT Alkaline Phosphatase Troponin I High Sens Total Protein Albumin Urine Color Yellow Urine Appearance Clear Urine pH 7.5 Ur Specific [place] 1.015 Urine Protein Negative Urine Glucose (UA) Negative Urine Ketones Negative Urine Blood Negative Urine Nitrite Negative Ur Leukocyte Esterase Negative COVID-19 (EMILE) COVID-19 Clin Com Imaging Radiologist's impression: Impressions Head/Neck CTA 01/12/22 06:41 IMPRESSION: No hemodynamically significant stenosis in the major arteries of the neck. No large vessel occlusion or significant stenosis in the intracranial circulation. Assessment and Plan (1) Dizziness: Status: Acute (2) Mobitz (type) I (Wenckebach's) atrioventricular block: Status: Acute Plan 56-year-old female who has known Mobitz type 1 av block and bradycardia in the past presenting for vertigo. The vertigo is likely due to BPPV. She has improved with meclizine. She has known history of bradycardia and has not had any symptoms in the past. I think her symptoms are due to vertigo and not due to Mobitz type 1 av block. No further workup is required inpatient. Thank you for allowing me to participate in the care of your patient. Please feel free to contact me if you have any questions. Procedures Date of Service Date of Service: 01/12/22
[2022-01-12 11:13] LABS: Thyroid Stimulating Hormone 3.16 uIU/mL (0.32-4.0)
--- NOTE | 2022-01-12 11:43 | PM.NEUROCN ---
History of Present Illness Data of Consult Service Date: 01/12/22 Primary Care Provider: Gadiel Vásquez MD [facility] Reason for consult: Dizziness 56 years old woman with history of bradycardia/Mobitz type 1 an exercise-induced asthma came to emergency room with dizziness. She said that she did not have this type of dizziness before. She woke up this morning went to bathroom and had spinning sensation and nausea. It lasted few seconds but then recurred and she vomited with that. She felt uneasy and done well. There was no fever chills or any focal symptoms such as difficulty speaking or numbness or weakness. There was no ear or eye symptom. She was still feeling somewhat in that manner. Review of Systems Review of Systems: She had little bit of upper respiratory infection type of symptoms recent [facility] Past Medical History Medical History Exercise-induced asthma Mobitz type 1 second degree atrioventricular block Palpitation PVC (premature ventricular contraction) Shortness of breath Family History Family History Paternal Grandfather No problems noted. Mother Rheumatic arteritis Eczema Father Lung cancer Surgical History Surgical History H/O eye surgery Hx of tonsillectomy [place] teeth removed Social History Social History Alcohol intake: current Alcohol intake frequency: a few times a month Patient Tobacco Use Status: Never used Tobacco Use of substances other than those prescribed or required for medical reasons: No Advance Directives: No Advance Directives Information Provided: Yes Meds Allergies Allergy/AdvReac Type Severity Reaction Status Date / Time latex [LATEX] Allergy Intermediate RASH Verified 05/09/21 14:12 Sulfa (Sulfonamide Allergy Unknown UNKNOWN Verified 05/09/21 14:12 Antibiotics) [Sulfa(Sulfonamide Antibiotics)] Active Medications: Current Medications Meclizine HCl (Meclizine Hcl 25 Mg Tablet) 25 mg PO Q6H PRN PRN Reason: Vertigo Pharmacy Consult (Consult Rx Perform Med Rec) 1 each MISCELLANE ONCE PRN PRN Reason: Consult order Sodium Chloride (0.9 % Sodium Chloride Flush 3 Ml Syringe) 3 ml IVFLUSH QSHIFT [facility] Home Medications Medication Instructions Recorded Confirmed Last Taken Type calcium carbonate 600 mg-vitamin 1 tab PO DAILY 01/12/22 01/12/22 01/11/22 History D3 5 mcg (200 unit) tablet lactobacillus comb no.10 20 20,000 mmu cells PO DAILY 01/12/22 01/12/22 01/11/22 History billion cell capsule (Probiotic) loratadine 10 mg tablet 10 mg PO DAILY 01/12/22 01/12/22 01/11/22 History multivitamin 1 tab PO DAILY 01/12/22 01/12/22 01/11/22 History naproxen sodium 220 mg capsule 220 mg PO DAILY 01/12/22 01/12/22 01/11/22 History (Aleve) triamcinolone acetonide 55 mcg 1 spray intranasal DAILY 01/12/22 01/12/22 01/11/22 History nasal spray aerosol (Nasacort) vitamin B complex 1 tab PO DAILY 01/12/22 01/12/22 01/11/22 History Physical Exam Vital Signs: Vital Signs: Last Vital Signs Temp 97 F 01/12/22 04:41 Pulse 52 01/12/22 10:28 Resp 16 01/12/22 10:28 BP 130/61 01/12/22 10:28 Pulse Ox 98 01/12/22 10:28 O2 Del Method 01/12/22 10:28 BMI result Body Mass Index 25.1 Neuro: Other: Alert and awake with normal spontaneity of speech fluency comprehension and affect. Pupils were equal and reactive to light and extraocular muscles were intact. Visual jean baptiste are full to threat. Face was symmetrical. Tongue was midline. There was no pronator drift. Bjaait-ta-nsge testing was normal. Deep tendon reflexes were trace with flexor plantars. Speech was normal. She was able to get up and walk around with no significant abnormality. She was able to walk tandem and Romberg was negative. Results Labs CBC & Chem 7: 01/12/22 05:32 01/12/22 05:32 Labs: Short CBC 01/12/22 Range/Units 05:32 WBC 4.6 L (4.8-10.8) X10*3/uL Hgb 13.7 (12.0-16.0) g/dl Hct 40.4 (37.0-47.0) % Plt Count 253 (160-400) X10*3/uL BMP 01/12/22 05:32 Sodium 142 Potassium 4.2 Chloride 106 Carbon Dioxide 25 BUN 22 H Creatinine 0.78 Calcium 8.9 Liver Function 01/12/22 Range/Units 05:32 Total Bilirubin 0.4 (0.0-1.0) mg/dL Direct Bilirubin < 0.2 (0.0-0.5) mg/dL AST 18 (5-31) U/L ALT 27 (0-31) U/L Alkaline Phosphatase 46 (39-117) U/L Albumin 4.1 (3.5-5.0) g/dL Urine 01/12/22 Range/Units 09:48 Urine Color Yellow Urine Appearance Clear Urine pH 7.5 (5.0-9.0) Ur Specific [place] 1.015 (1.005-1.025) Urine Protein Negative (Neg-Trace) mg/dL Urine Glucose (UA) Negative (Negative) mg/dL Noncontrast head CT and CTA of brain did not reveal any significant abnormality. Assessment and Plan (1) Dizziness: Status: Acute Nonspecific dizziness with features of vertigo nausea and vomiting with no associated brainstem symptom or sign. Likely etiology was peripheral vestibular dysfunction related to viral syndrome or food related toxin. Conservative management is recommended Procedures Date of Service Date of Service: 01/12/22
--- NOTE | 2022-01-12 15:35 | PM.DS ---
DS: Providers Provider Date of Service: 01/12/22 Date of admission: 01/12/22 09:27 Primary care physician: Gadiel Vásquez MD Consults: 01/12/22 09:02 Consult to Cardiology Stat Consulting Provider: Jonathan Keller Reason for consultation: Lightheadedness, 2nd degree AV block 01/12/22 09:28 Consult to Cardiology Routine Consulting Provider: Jonathan Keller Reason for consultation: dizziness, history of motbitz type 1 01/12/22 09:29 Consult to Neurology Routine Consulting Provider: [facility] Reason for consultation: dizziness, vertigo DS: Diagnosis Discharge Diagnosis (1) BPPV (benign paroxysmal positional vertigo): Status: Acute (2) Mobitz (type) I (Wenckebach's) atrioventricular block: Status: Acute DS: Summary Hospital Course Hospital Course: HPI From the admission H&P: This is a relatively healthy 56 year old female who presents to the ED with sudden onset of dizziness during the night prior to admission. The patient, who has a history of sinus doug / Mobitz type I, reports that she was in her usual state of health the day prior. She did endorse that she was recovering from mild URI symptoms but denied any tinnitus, pain or full of her ears bilaterally. She reports that she felt as if the room was spinning and also felt as if she was going to pass out. She noted that the dizziness was most pronounced when she turned her head to the left. She reports taking some baby aspirin during the episode (states in case she was having an PA) but she subsequently vomited. In the ED, her work up revealed a CTA of head/neck without any LVO and no stenosis of the major neck and intracranial circulation. She was given IVF, zofran and meclizine. Her symptoms have improved but now resolved. In light of her cardiac history -- she will be observed with cardiology and neurology consults. Hospital Course: Patient was evalated with a CT head/neck which was negative for acute findings. She was monitored on telemetry. She was evaluated by neurology and cardiology. Cardiology did not feel her symptoms were related to her known history of Mobitz type I. Neurology felt that her symptoms were likely related to peripheral vestibular dysfunction secondary to her recent viral illness or food related toxin. Conservative mgmt was recommended. She was treated with meclicizine with significant improvement in her symptoms. She was able to ambulate to the bathroom without any significant gait abnormalities. She is eager for discharge home as her symptoms have improved and hence will be sent home with PRN meclizine. She has been advised to return to the ED should her symptoms reoccur. Time Spent with Patient Time attestation: Total time spent providing and/or coordinating discharge services: Discharge coordination time: Less than 30 minutes Quality: Safe Use of Opioids Does Pt have an Active Cancer Diagnosis on the Problem List?: No Quality: Stroke Does the patient have a stroke diagnosis?: No Physical Exam Vital Signs: Vital Signs: Last Vital Signs Temp 97 F 01/12/22 04:41 Pulse 52 01/12/22 10:28 Resp 16 01/12/22 10:28 BP 130/61 01/12/22 10:28 Pulse Ox 98 01/12/22 10:28 O2 Del Method 01/12/22 10:28 BMI result Body Mass Index 25.1 Const: Other: Constitutional - Awake and Alert, No apparent distress Eyes - PERRLA, EOMI Cardiovascular - S1S2, RRR, No edema Respiratory - Normal lung expansion, Normal respiratory effort, No respiratory distress, CTA bilaterally Gastrointestinal - NT / ND; +BS; No rebound or guarding - No CVA tenderness Extremities - no calf tenderness bilaterally, no swelling Musculoskeletal - Normal inspection, normal ROM Skin - Warm/Dry Neurological - Alert & oriented x3, No focal deficit; ambulates without any gait abnormalities. Psychological - Appropriate affect DS: Data Data Completed and Pending Labs on day of discharge: Laboratory Results - last 24 hr 01/12/22 01/12/22 01/12/22 04:52 05:32 05:32 WBC 4.6 L RBC 4.44 Hgb 13.7 Hct 40.4 MCV 91.0 MCH 30.9 MCHC 33.9 RDW 12.3 Plt Count 253 MPV 9.6 Immature Gran % (Auto) 0.7 H Neut % (Auto) 61.0 Lymph % (Auto) 23.8 [place] % (Auto) 11.4 H Eos % (Auto) 2.2 Baso % (Auto) 0.9 Lymph # (Auto) 1.1 L [place] # (Auto) 0.5 Eos # (Auto) 0.1 Baso # (Auto) 0.0 Abs Immat Gran (auto) 0.03 Absolute Neuts (auto) 2.8 Absolute Nucleated RBC 0.000 Nucleated RBC % (auto) 0.0 PT 11.0 INR 1.0 Sodium Potassium Chloride Carbon Dioxide Anion Gap BUN Creatinine Estim Creat Clear Calc Estimated GFR Random Glucose Calcium Magnesium Total Bilirubin Direct Bilirubin AST ALT Alkaline Phosphatase Troponin I High Sens Total Protein Albumin TSH Urine Color Urine Appearance Urine pH Ur Specific [place] Urine Protein Urine Glucose (UA) Urine Ketones Urine Blood Urine Nitrite Ur Leukocyte Esterase COVID-19 (EMILE) Negative COVID-19 Clin Com See Note 01/12/22 01/12/22 01/12/22 05:32 05:32 07:37 WBC RBC Hgb Hct MCV MCH MCHC RDW Plt Count MPV Immature Gran % (Auto) Neut % (Auto) Lymph % (Auto) [place] % (Auto) Eos % (Auto) Baso % (Auto) Lymph # (Auto) [place] # (Auto) Eos # (Auto) Baso # (Auto) Abs Immat Gran (auto) Absolute Neuts (auto) Absolute Nucleated RBC Nucleated RBC % (auto) PT INR Sodium 142 Potassium 4.2 Chloride 106 Carbon Dioxide 25 Anion Gap 15 BUN 22 H Creatinine 0.78 Estim Creat Clear Calc 88.1 Estimated GFR > 60 Random Glucose 108 Calcium 8.9 Magnesium 2.2 Total Bilirubin 0.4 Direct Bilirubin < 0.2 AST 18 ALT 27 Alkaline Phosphatase 46 Troponin I High Sens < 3.5 < 3.5 Total Protein 6.1 L Albumin 4.1 TSH 3.16 Urine Color Urine Appearance Urine pH Ur Specific [place] Urine Protein Urine Glucose (UA) Urine Ketones Urine Blood Urine Nitrite Ur Leukocyte Esterase COVID-19 (EMILE) COVID-19 Clin Com 01/12/22 09:48 WBC RBC Hgb Hct MCV MCH MCHC RDW Plt Count MPV Immature Gran % (Auto) Neut % (Auto) Lymph % (Auto) [place] % (Auto) Eos % (Auto) Baso % (Auto) Lymph # (Auto) [place] # (Auto) Eos # (Auto) Baso # (Auto) Abs Immat Gran (auto) Absolute Neuts (auto) Absolute Nucleated RBC Nucleated RBC % (auto) PT INR Sodium Potassium Chloride Carbon Dioxide Anion Gap BUN Creatinine Estim Creat Clear Calc Estimated GFR Random Glucose Calcium Magnesium Total Bilirubin Direct Bilirubin AST ALT Alkaline Phosphatase Troponin I High Sens Total Protein Albumin TSH Urine Color Yellow Urine Appearance Clear Urine pH 7.5 Ur Specific [place] 1.015 Urine Protein Negative Urine Glucose (UA) Negative Urine Ketones Negative Urine Blood Negative Urine Nitrite Negative Ur Leukocyte Esterase Negative COVID-19 (EMILE) COVID-19 Clin Com Discharge Plan Discharge Patient Disposition: Home, Self-Care Discharge Diagnosis: Vertigo Referrals: Gadiel Vásquez MD [Primary Care Provider] - 1 Week Discharge Medications: New meclizine 25 mg Tablet 25 mg PO Q6H PRN (Reason: Vertigo) Qty: 30 0RF Continued multivitamin Tablet 1 tab PO DAILY calcium carbonate-vitamin D3 600 mg-5 mcg (200 unit) Tablet 1 tab PO DAILY triamcinolone acetonide [Nasacort] 55 mcg Aerosol,Newborn 1 spray INTRANASAL DAILY Rx Instructions: administer into each nostril vitamin B complex Tablet 1 tab PO DAILY loratadine 10 mg Tablet 10 mg PO DAILY naproxen sodium [Aleve] 220 mg Capsule 220 mg PO DAILY Probiotic 20 billion cell Capsule 20,000 mmu cells PO DAILY Rx Instructions: administer with a meal Discharge Orders: Discharge Order (Routine); Ordered 01/12/22 Ordered By: Ajit Amin Diet: Advance to usual diet Activity on Discharge: As tolerated Stand Alone Forms: Patient Portal Discharge page Care Plan Goals: To stay healthy and out of the hospital. Health Concerns: Vertigo Plan of Treatment: Take meclizine as needed for Vertigo symptoms. If you symptoms reoccur or you have any concerns, please return to the ED. Assessment: see d/c summary
== END 2022-01-12 15:42 | disposition home or self-care (01) ==
LOC: HO.ED 09:26 → HO.EDOVER 09:35
PROVIDERS: Emergency Medicine; Internal Medicine Cardiovascular Disease; Admitting Provider Family Medicine; Emergency Provider Student in an Organized Health Care Education/Training Program; PCP Internal Medicine; Visit Provider Family Medicine
DX: H81.10 Benign paroxysmal vertigo, unspecified ear (principal); I44.1 Atrioventricular block, second degree; R11.2 Nausea with vomiting, unspecified; Z20.822 Contact with and (suspected) exposure to COVID-19; Z79.82 Long term (current) use of aspirin; Z79.899 Other long term (current) drug therapy
CPT/HCPCS: 36415; 70496; 70498; 80048; 80076; 81003; 83735; 84443; 84484; 85025; 85610; 87635; 93005; 96361; 96374; 99219; 99285; J2405; Q9967

== ENCOUNTER 2022-01-22 15:09 | Outpatient (REF) | payer OTHER, SELFPAY ==
--- NOTE | ~2022-01-22 | MM_ITS ---
EXAMINATION: MM SCREENING DIGITAL BREAST TOMOSYNTHESIS, BILATERAL CLINICAL INFORMATION: Screening. Asymptomatic. The lifetime risk of breast cancer based on the Tyrer-Cuzick Model is 10%. COMPARISON: Mammography: 01/19/2021, 01/14/2020, 01/08/2019 TECHNIQUE: Digital breast tomosynthesis is performed in both the craniocaudal and mediolateral oblique views along with computer-aided detection (CAD). Synthesized 2D images are generated from the tomosynthesis. FINDINGS: There are scattered areas of fibroglandular density (ACR BI-RADS breast composition Category b). There are no significant masses, abnormal calcifications, or other abnormalities. Parenchymal pattern is similar to prior studies and there is no developing density or architectural abnormality. The axilla are stable. Skin contours are smooth. MM/MM tomosynthesis screening BI IMPRESSION: No mammographic evidence of malignancy. ASSESSMENT: BI-RADS 1: Negative RECOMMENDATION: Routine annual mammography screening. This patient's information was entered into a reminder system with a target due date for their next mammogram.
== END 2022-01-22 15:10 | disposition home or self-care (01) ==
LOC: HO.MAMMO 15:09
PROVIDERS: PCP Internal Medicine; Visit Provider Internal Medicine
DX: Z12.31 Encounter for screening mammogram for malignant neoplasm of breast (principal)
CPT/HCPCS: 77063; 77067

== ENCOUNTER 2022-01-23 08:45 | Outpatient (REF) | payer OTHER, SELFPAY ==
[2022-01-23 09:41] LABS: Cholesterol 256 mg/dL; HDL Cholesterol 65 mg/dL; LDL Cholesterol Calculated 175 mg/dl; Triglycerides 82 mg/dL
[2022-01-23 10:05] LABS: Free T4 (Free Thyroxine) 0.85 ng/dL (0.71-1.85)
== END 2022-01-23 08:46 | disposition home or self-care (01) ==
LOC: HO.LAB 08:45
PROVIDERS: PCP Internal Medicine; Visit Provider Internal Medicine
DX: E78.00 Pure hypercholesterolemia, unspecified (principal); R00.2 Palpitations; R42 Dizziness and giddiness; J45.909 Unspecified asthma, uncomplicated
CPT/HCPCS: 36415; 80061; 84439; 84443

== ENCOUNTER 2022-04-13 14:51 | Outpatient (REF) | payer OTHER, SELFPAY ==
[2022-04-13 15:13] LABS: Strep A Nucleic Acid Negative (Negative)
[2022-04-13 15:44] LABS: Influenza A PCR NEGATIVE (Negative); Influenza B PCR NEGATIVE (Negative); Resp Syncy Virus RNA Qual PCR NEGATIVE (Negative); SARS COV2 PCR INHOUSE NEGATIVE (Negative)
== END 2022-04-13 14:52 | disposition home or self-care (01) ==
LOC: HO.LNP 14:51
PROVIDERS: Visit Provider Internal Medicine
DX: J02.9 Acute pharyngitis, unspecified (principal); R05.9 Cough, unspecified; Z20.822 Contact with and (suspected) exposure to COVID-19
CPT/HCPCS: 0241U; 87651

== ENCOUNTER 2022-06-19 15:00 | Outpatient (RCR) | payer OTHER, SELFPAY ==
--- NOTE | 2022-05-03 11:56 | MHC.PT.EP ---
[facility] [place] [facility] [place] [facility] [place] Office [address] [phone] F: [phone] F: [phone] F: [phone] F: [phone] Physical Therapy Plan of Care Date of Evaluation: Date of Surgery: N/A Diagnosis: cervicalagia pain in left shoulder Assessment: Pt is a pleasant and motivated 57yo F who presents to PT with L neck/shoulder pain since ~February. She presents to PT with current impairments in pain, decreased cervical ROM, soft tissue restrictions, and impaired posture. She is TTP throughout L UT, levator, cervical PS and medial scap border. She is limited functionally by rotation, sleeping, driving, reading, and overhead ADLs. She is an excellent candidate for skilled PT in order to address current impairments to PLOF. She is recommended to be seen 2x/week for 4 weeks and will be reassessed at that time. Frequency and Duration: The patient will be seen 2x/week for 4 weeks Short Term Goals: Pt will be I with HEP to promote self management of symptoms Pt will improve L cervical rotation and lateral flexion by at least 5 deg ea Pt will demonstrate improvements in postural awareness throughout the day [place] Programmer Goals: Pt will demonstrate full, pain-free ROM throughout cervical spine Pt will demonstrate ability to perform overhead ADLs with minimal to no pain Pt will demonstrate improvements in function as evidenced by statistically significant improvement in Neck Pain and Disability Index Questionnaire Treatment Plan: Modalities to reduce pain, spasms and effusion. Manual therapy to restore motion and function. Therapeutic exercise to improve strength and flexibility. Neuromuscular re-education for posture and balance. Therapeutic activities to return to functional activities of daily living. Electronically signed by: Carly Monzon, PT, DPT Please sign and return to therapist. Thank you for your referral.
--- NOTE | 2022-06-20 11:43 | MHC.PT.DC ---
[facility] [place] Office [place] [facility] [place] Office [address] [phone] F: [phone] F: [phone] F: [phone] F: [phone] Physical Therapy Discharge Report Diagnosis: cervicalagia pain in left shoulder Date of Surgery: N/A Date of Evaluation: 05/02/22 Date of Discharge: 06/20/22 Treatments to Date: 10 Cancellations to Date: No Shows to Date: Discharge Status: Achieved Goals Improved Function Independent with HEP Discharge Summary: Pt was seen for PT from 05/02/22-06/19/22. She made good progress with skilled PT. She met her STGs and LTGs. She demonstrates AROM WFL all planes of cervical spine. She improved her score on Neck Pain Disability Index Questionnaire to 6/50 at D/C. She does continue to have intermittent pain however after PT she reports improvement in symptoms and is able to perform exercises without increase in pain. Pt is I with HEP. Pt is being D/C from skilled PT at this time. She is recommended to perform HEP consistently for a few weeks, and if pain persists she is recommended to follow up with MD. Electronically signed by: Carly Monzon, PT, DPT Please sign and return to therapist. Thank you for your referral.
== END 2022-06-20 11:46 | disposition home or self-care (01) ==
LOC: HO.PT 15:00
PROVIDERS: PCP Internal Medicine; Visit Provider Internal Medicine
DX: M54.2 Cervicalgia (principal); M25.512 Pain in left shoulder
CPT/HCPCS: 97110; 97140; 97162

== ENCOUNTER → 2023-01-28 16:00 | Outpatient (BNV) | payer OTHER, SELFPAY | PROVIDERS: PCP Internal Medicine; Visit Provider Radiology Diagnostic Radiology | DX: Z12.31 Encounter for screening mammogram for malignant neoplasm of breast (principal) | CPT/HCPCS: 77063; 77067 ==

== ENCOUNTER 2023-01-28 16:06 | Outpatient (REF) | payer OTHER, SELFPAY | END 2023-01-28 16:07 | disposition home or self-care (01) | LOC: HO.MAMMO 16:06 | PROVIDERS: PCP Internal Medicine; Visit Provider Internal Medicine | DX: Z12.31 Encounter for screening mammogram for malignant neoplasm of breast (principal) | CPT/HCPCS: 77063; 77067 ==

== ENCOUNTER 2023-06-04 15:08 | Outpatient (AMB) | payer OTHER, SELFPAY ==
[2023-06-04 15:12] VITALS: BP 118/64; PULSE 51; BMI 26.6
--- NOTE | 2023-06-04 15:12 | A.OFFVIS_ITS ---
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 Required: No Allergies latex [LATEX] Allergy (Intermediate, Verified 05/09/21 14:12) RASH Sulfa (Sulfonamide Antibiotics) [Sulfa(Sulfonamide Antibiotics)] Allergy (Unknown, Verified 05/09/21 14:12) UNKNOWN Medication List - Last Reconciled 06/04/23 by Cristofer Mathews MD albuterol sulfate 90 mcg/actuation inhalation calcium carbonate-vitamin D3 600 mg-5 mcg (200 unit) 1 tab PO DAILY lactobacillus comb no.10 (Probiotic) 20,000 mmu cells PO DAILY loratadine 10 mg PO DAILY meclizine 25 mg PO Q6H PRN multivitamin 1 tab PO DAILY triamcinolone acetonide (Nasacort) 1 spray intranasal DAILY vitamin B complex 1 tab PO DAILY HPI HPI Comments History of Present Illness Details Marly comes for follow-up. Overall she has been doing well. She denies any symptoms of lightheadedness, syncope. Continues to have symptoms occasionally with exertional shortness of breath when she exercises. No obvious wheezing. She says her inhalers are not working as much as before. She denies any symptoms of palpitation or skipped heartbeats. Denies any exertional chest pain. No orthopnea, PND, leg edema. She says she gets more symptoms of shortness of breath with exercise after she has had mild alcohol intake the day prior. [facility] Medical History Mobitz (type) I (Wenckebach's) atrioventricular block Mobitz type 1 second degree atrioventricular block Shortness of breath Palpitation Exercise-induced asthma PVC (premature ventricular contraction) Surgical History [place] teeth removed H/O eye surgery Hx of tonsillectomy Family History Paternal Grandfather No problems noted. Mother Rheumatic arteritis Eczema Father Lung cancer Social History Alcohol intake: current Alcohol intake frequency: a few times a month Patient Tobacco Use Status: Never used Tobacco Review of Systems Const Denies chills, Denies fatigue, Denies fever(s), Denies frequent falls, Denies weakness, Denies weight gain and Denies weight loss ENT Denies dizziness Card Denies chest pain, Denies leg edema, Denies lightheadedness, Denies palpitations, Denies dyspnea, Denies dyspnea on exertion, Denies orthopnea and Denies other (loss of consciousness) Resp Denies cough, Denies dyspnea and Denies dyspnea on exertion GI Denies hematochezia and Denies change in stool character Musc Denies abnormal gait, Denies muscle weakness, Denies numbness, Denies radiating pain into limb and Denies tingling Neuro Denies abnormal gait, Denies dizziness, Denies frequent falls, Denies numbness, Denies tingling and Denies weakness Endo Denies fatigue and Denies palpitations Physical Exam Vital Signs: Last Vital Signs Pulse 51 06/04/23 15:12 BP 118/64 06/04/23 15:12 BMI result Body Mass Index 26.6 Const General: cooperative, healthy appearing, comfortable and no acute distress Orientation/consciousness: patient oriented x3 HEENT Head: Yes normal to inspection Resp Effort & Inspection: normal respiratory effort Auscultation: clear to auscultation bilaterally, no crackles, no rales, no rhonchi and no wheezes Cardio Rate: regular rate Rhythm: regular rhythm Heart sounds: S1 normal heart sound present, S2 normal heart sound present, no gallops, no murmurs and no rubs GI Inspection: Yes normal to inspection Skin General skin exam: no rashes or lesions noted Neuro General: patient oriented x3 Extrem General: Yes normal to inspection, No no pedal edema and No calf tenderness Office Procedures EKG Details: EKG shows sinus bradycardia with first-degree AV block otherwise normal EKG 11457-[id number], Complete Assessment & Plan Assessment & Plan (1) Sinus bradycardia: Code(s): R00.1 - Bradycardia, unspecified Plan: Sinus bradycardia which is asymptomatic. No interventions required. Most likely related to good functional and aerobic shape. (2) PVC (premature ventricular contraction): Code(s): I49.3 - Ventricular premature depolarization Plan: Prior history of PVCs which have not significantly recurred at this point time or are significantly symptomatic at this point time. No pharmacotherapy indicated. Continue to avoid stimulants. Continue maintain activity level as tolerated. Her exertional shortness of breath still appears to be related to exercise-induced bronchospasm. Advised to reach change her use of inhaler therapy to 10 minutes prior to exercise onset. Will follow up in the clinic in 2 years time, sooner p.r.n.. Thank you for allowing me to partake in her care Coding Level of Care Code Est Pt Level 3 (42162) Diagnoses Sinus bradycardia R00.1 PVC (premature ventricular contraction) I49.3 CPT Codes EKG - CPT: 54405-[id number], Complete ([id number])
== END 2023-06-04 15:43 | disposition home or self-care (01) ==
PROVIDERS: PCP Internal Medicine; Visit Provider Internal Medicine Cardiovascular Disease
DX: R00.1 Bradycardia, unspecified (principal); I49.3 Ventricular premature depolarization
CPT/HCPCS: 93010; 99213

== ENCOUNTER → 2023-06-04 15:08 | Outpatient (BNVA) | payer OTHER, SELFPAY | PROVIDERS: PCP Internal Medicine; Visit Provider Internal Medicine Cardiovascular Disease | DX: I49.3 Ventricular premature depolarization (principal) | CPT/HCPCS: 93005 ==

== ENCOUNTER 2023-06-11 14:03 | Outpatient (REF) | payer OTHER, SELFPAY ==
[2023-06-11 14:49] LABS: Influenza A PCR NEGATIVE (Negative); Influenza B PCR NEGATIVE (Negative); Resp Syncy Virus RNA Qual PCR NEGATIVE (Negative); SARS COV2 PCR INHOUSE NEGATIVE (Negative)
== END 2023-06-11 14:04 | disposition home or self-care (01) ==
LOC: HO.LNP 14:03
PROVIDERS: Visit Provider Internal Medicine
DX: Z11.52 Encounter for screening for COVID-19 (principal); J06.9 Acute upper respiratory infection, unspecified; R05.9 Cough, unspecified
CPT/HCPCS: 0241U

== ENCOUNTER 2023-07-05 09:33 | Outpatient (REF) | payer OTHER, SELFPAY ==
--- NOTE | ~2023-07-05 | XR_ITS ---
EXAMINATION: XR SINUSES CLINICAL INFORMATION: Right-sided sinus pressure COMPARISON: None available. TECHNIQUE: 4 views of the paranasal sinuses FINDINGS: Paranasal sinuses appear clear without air-fluid levels. No fractures are identified. No radiodense foreign bodies. XR/XR sinus min 3V IMPRESSION: Unremarkable examination.
== END 2023-07-05 09:34 | disposition home or self-care (01) ==
LOC: HO.XRAY 09:33
PROVIDERS: PCP Internal Medicine; Visit Provider Internal Medicine
DX: J34.89 Other specified disorders of nose and nasal sinuses (principal)
CPT/HCPCS: 70220

== ENCOUNTER 2023-08-07 14:13 | Outpatient (REF) | payer OTHER, SELFPAY ==
[2023-08-07 16:54] LABS: Appearance Urine Clear; Color Urine Yellow; Glucose Urine UA Negative (Negative); Leukocyte Esterase Urine Moderate (2+) (Negative); Nitrite Urine Negative (Negative); Specific Gravity - Urine <= 1.005 (1.005-1.025); UMIC TRIGGER UACC YES; Urine Blood Small (1+) (Negative); Urine Ketones Negative (Negative); Urine Protein Negative (Neg-Trace)
[2023-08-07 17:08] LABS: Bacteria Urine Trace (None Seen); Hyaline Casts Urine 0-2 /LPF (0-2); RBC Urine 0-2 /HPF (0-2); Squamous Epithelial Cell Urine 0-2 /HPF (0-2); UACC Culture Trigger YES
== END 2023-08-07 14:14 | disposition home or self-care (01) ==
LOC: HO.LAB 14:13
PROVIDERS: PCP Internal Medicine; Visit Provider Internal Medicine
DX: R30.0 Dysuria (principal); R35.0 Frequency of micturition
CPT/HCPCS: 81001; 81003; 87086; 87088; 87186

== ENCOUNTER 2023-11-29 10:32 | Outpatient (REF) | payer OTHER, SELFPAY ==
[2023-11-29 10:44] LABS: MANUAL DIFF FLAG NO
[2023-11-29 11:36] LABS: Basophils Percent Auto 0.7 % (0-2); Eosinophils Absolute Auto 0.1 X10*3/uL (0.0-0.4); Eosinophils Percent Auto 1.9 % (0-4); Hematocrit 42.8 % (37.0-47.0); Hemoglobin 14.3 g/dl (12.0-16.0); Lymphocytes Absolute Auto 1.2 X10*3/uL (1.2-4.9); Lymphocytes Percent Auto 29.4 % (20-40); Mean Corpuscular HGB Conc 33.4 g/dl (31.0-35.0); Mean Corpuscular Hemoglobin 31.2 pg (27.0-33.0); Mean Corpuscular Volume 93.2 fL (80.0-98.0); Mean Platelet Volume 10.5 fL (9.4-12.3); Monocytes Absolute Auto 0.4 X10*3/uL (0.1-1.2); Monocytes Percent Auto 10.3 % (2-11); Neutrophils Absolute Auto 2.4 x10*3/uL (2.0-8.3); Neutrophils Percent Auto 57.7 % (45-73); Platelet Count 221 X10*3/uL (160-400); Red Blood Count 4.59 X10*6/uL (4.20-5.50); Red Cell Distribution Width 12.6 % (11.0-16.0); White Blood Count 4.2 X10*3/uL (4.8-10.8)
[2023-11-29 12:08] LABS: Alanine Aminotransferase 21 U/L (0-31); Albumin Level 4.5 g/dL (3.5-5.0); Alkaline Phosphatase 49 U/L (39-117); Anion Gap 13 (12-20); Aspartate Amino Transferase 18 U/L (5-31); Bilirubin Total 0.6 mg/dL (0.0-1.0); Blood Urea Nitrogen 19 mg/dL (9-16); Calcium 9.6 mg/dL (8.4-10.2); Carbon Dioxide 28 mmol/L (22-29); Chloride 104 mmol/L (96-108); Cholesterol 226 mg/dL (<200); Estimated Glomerular Filt Rate > 60; Glucose Fasting 96 mg/dL (60-99); HDL Cholesterol 65 mg/dL (>40); LDL Cholesterol Calculated 151 mg/dL (<100); Potassium 4.5 mmol/L (3.3-5.1); Sodium 140 mmol/L (135-145); Total Protein 6.6 g/dL (6.5-8.0); Triglycerides 51 mg/dL (<150)
== END 2023-11-29 10:33 | disposition home or self-care (01) ==
LOC: HO.LAB 10:32
PROVIDERS: PCP Internal Medicine; Visit Provider Internal Medicine
DX: E78.00 Pure hypercholesterolemia, unspecified (principal); J45.909 Unspecified asthma, uncomplicated
CPT/HCPCS: 36415; 80053; 80061; 85025

== ENCOUNTER 2024-02-19 15:28 | Outpatient (REF) | payer OTHER, SELFPAY ==
--- NOTE | ~2024-02-19 | MM_ITS ---
EXAMINATION: MM SCREENING DIGITAL BREAST TOMOSYNTHESIS, BILATERAL CLINICAL INFORMATION: Screening. Asymptomatic. COMPARISON: Mammography: Comparison is made with available priors TECHNIQUE: Digital breast mammography with tomosynthesis is performed in both the craniocaudal and mediolateral oblique views along with computer-aided detection (CAD). FINDINGS: There are scattered areas of fibroglandular density (ACR BI-RADS breast composition Category b). There are no significant masses, abnormal calcifications, or other abnormalities. MM/MM tomosynthesis screening BI IMPRESSION: No mammographic evidence of malignancy. ASSESSMENT: BI-RADS BI-RADS 1 - Negative RECOMMENDATION: Routine annual mammography screening. 1 year F/U This examination should not preclude the clinical evaluation of a suspicious palpable abnormality. This patient's information was entered into a reminder system with a target due date for their next mammogram. Electronically signed by: Tootie Felix DO 02/21/2024 10:00 AM CLAIRE
== END 2024-02-19 15:29 | disposition home or self-care (01) ==
LOC: HO.MAMMO 15:28
PROVIDERS: Absent Provider Obstetrics & Gynecology; PCP Internal Medicine; Visit Provider Internal Medicine
DX: Z12.31 Encounter for screening mammogram for malignant neoplasm of breast (principal)
CPT/HCPCS: 77063; 77067

== ENCOUNTER → 2024-02-19 15:30 | Outpatient (BNV) | payer OTHER, SELFPAY | PROVIDERS: Absent Provider Obstetrics & Gynecology; PCP Internal Medicine; Visit Provider Internal Medicine | DX: Z12.31 Encounter for screening mammogram for malignant neoplasm of breast (principal) | CPT/HCPCS: 77063; 77067 ==

== ENCOUNTER 2024-07-15 14:38 | Outpatient (AMB) | payer OTHER, SELFPAY ==
[2024-07-15 14:42] VITALS: BP 124/82; PULSE 58; RESP 16; TEMP 36.4; O2SAT 99; BMI 25.8
--- NOTE | 2024-07-15 14:42 | MHC.PC.OV ---
Vital Signs 07/15/24 14:42 Height 5 ft 10 in Weight 180 lb BMI 25.8 BP 124/82 Respiration 16 Pulse 58 Pulse Source Pulse Oximeter Temp 97.6 F Temp Source Temporal Artery Scan Pulse Oximetry (%) 99 Oxygen Delivery Method Room Air Intake Visit Reasons: Sick Neurologist Required: No Accompanied by: Self / Same As Patient Allergies latex [LATEX] Allergy (Intermediate, Verified 07/15/24 14:47) RASH Sulfa (Sulfonamide Antibiotics) [Sulfa(Sulfonamide Antibiotics)] Allergy (Unknown, Verified 07/15/24 14:47) UNKNOWN Tobacco use date assessed: 07/15/24 Dental Screening Dental Screen Date: 07/15/24 Did you have a dental visit in the last 12 months?: Yes Did you have a dental problem in the last 6 months where you did not have access to dental care?: No [facility] Medical History Mobitz (type) I (Wenckebach's) atrioventricular block Mobitz type 1 second degree atrioventricular block Shortness of breath Palpitation Exercise-induced asthma PVC (premature ventricular contraction) Surgical History [place] teeth removed H/O eye surgery Hx of tonsillectomy Family History Paternal Grandfather No problems noted. Mother Rheumatic arteritis Eczema Father Lung cancer Social History Housing: House Alcohol intake: current Alcohol intake frequency: a few times a month Patient Tobacco Use Status: Never used Tobacco service: No Current occupational status: employed Cognitive needs: No Hearing needs: No Vision needs: Yes (rx glasses) Questionnaire PHQ-9 Over the last 2 weeks, how often have you been bothered by any of the following problems? 1. Little interest or pleasure in doing things: several days 2. Feeling down, depressed, or hopeless: not at all 3. Trouble falling or staying asleep, or sleeping too much: not at all 4. Feeling tired or having little energy: several days 5. Poor appetite or overeating: not at all 6. Feeling bad about yourself - or that you are a failure or have let yourself or your family down: not at all 7. Trouble concentrating on things, such as reading the newspaper or watching television: not at all 8. Moving or speaking so slowly that other people could have noticed. Or the opposite - being so fidgety or restless that you have been moving around a lot more than usual: not at all 9. Thoughts that you would be better off or of hurting yourself in some way: not at all Total score: 2 Source: Developed by Drs. Quintin Lorenzo, Rosemarie Malik, Dean Polo and colleagues, with an educational sophie from [employer]. BETTY-7 AMB Questionnaire BETTY-7 Date BETTY - 7 assessed: 07/15/24 Feeling nervous, anxious, or on edge: 0 = Not at all Not being able to stop or control worryin = Not at all Worrying too much about different things: 0 = Not at all Trouble relaxin = Not at all Being so restless that it is hard to sit still: 0 = Not at all Becoming easily annoyed or irritable: 0 = Not at all Feeling afraid as if something awful might happen: 0 = Not at all Total BETTY-7 score (0-4 normal; 5-9 mild; 10-14 moderate; 15-21 severe): 0 Source: Developed by Drs. Quintin Lorenzo, Rosemarie Malik, Dean Polo and colleagues, with an educational sophie from [employer]. Physical exam (Primary Care) Vital Signs: Last Vital Signs Temp 97.6 F 07/15/24 14:42 Pulse 58 07/15/24 14:42 Resp 16 07/15/24 14:42 BP 124/82 07/15/24 14:42 Pulse Ox 99 07/15/24 14:42 Oxygen Delivery Method Room Air 07/15/24 14:42 BMI result Body Mass Index 25.8 Tobacco/Smoking Status: Tobacco use Status Tobacco use date assessed 07/15/24 07/15/24 14:55 Patient Tobacco Use Status Never used Tobacco 07/15/24 14:55 PHQ-9: PHQ-9 Score PHQ-9: Total score 2 07/15/24 14:56 Coding Level of Care Code New Pt Level 4 (42392) Complex EM visit Add On G2211 Diagnoses Upper respiratory tract infection J06.9 Assessment & Plan Assessment & Plan (1) Upper respiratory tract infection: Code(s): J06.9 - Acute upper respiratory infection, unspecified Plan: Azithromycin and Prednisone called in, Plan History of Present Illness The patient is a 59-year-old female presenting with symptoms suggestive of an upper respiratory tract infection. She initially developed a mild sore throat on July 02, which quickly transitioned to marked nasal congestion by July 04. Self-treatment with Mucinex did not alleviate symptoms, leading her to switch to DayQuil. As her condition evolved, she noted productive respiratory symptoms and nocturnal wheezing that worsened when reclining. The patient manages exercise-induced asthma with a rescue inhaler during physical exertions, although recent non-active lifestyle patterns due to time constraints have limited its use. The current presentation possibly represents an infection exacerbating her asthma. 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 - Neurological: Denies any changes in cognition or significant fatigue. - Allergies: Reports allergy to Bactrim and sulfa drugs. Physical Exam General: Appearance normal, both eyes and all related structures Nutritional Appearance: Well nourished Orientation/consciousness: Patient oriented x3 Limitations: No limitations Head: Normal to inspection Neck: Normal visual inspection Chest: Normal palpation of entire chest wall Respiratory: Wheezing noted, especially when lying down Neurology: Patient oriented x3 Results Plan To address the patient's upper respiratory symptoms, I propose a five-day antibiotic regimen and prednisone to mediate pulmonary inflammation. Continued use of DayQuil is recommended unless inefficacious. Due to sensitivity, NyQuil and similar sedatives are contraindicated. Persistent symptoms beyond this treatment plan may merit further investigation through laboratory assessment and imaging. Previous chronic conditions, including asthma management, should be re-evaluated during follow-up appointments scheduled in the coming months. Patient was informed and verbally consented to the use of an ambient scribe for clinic note documentation during this visit. Discussion Notes I discussed with the patient the likely infectious etiology of her symptoms and the overlap with her asthma. We opted for antibiotics and prednisone based on her current presentation. She understands her current medications should continue, excepting sedative antihistamines due to previous adverse effects. The necessity of follow-up for persistent symptoms and adjustments to her asthma management was conveyed. I reiterated the importance of maintaining her physical health and being attentive to symptoms warranting immediate reassessment. Patient Instructions - Use antibiotics for 5 days as prescribed. - Take prednisone as directed to relieve inflammation. - Continue DayQuil; avoid NyQuil, Benadryl, and Tylenol PM. - Monitor symptoms; seek further care if symptoms persist after completing medication. - Schedule a follow-up appointment in a couple of months. - Maintain general health practices and manage asthma appropriately. Medications: New azithromycin take 500 mg today (day 1), then 250 mg for 4 days (days 2-5) PO 6 tabs 0RF prednisone 60 mg (3 x 20 mg) PO DAILY 9 tabs 0RF
--- OUTSIDE RECORDS SUMMARY | 2024-07-15 17:15 | XMS_ITS | Clinical Summary ---
Author Organization Formerly [facility] Address [address] [place] [address] Care Team Providers Care Hand Counter Name Role Phone Edy Pedersen Primary Care Provider [phone] Allergies Active Allergy Reactions Criticality Noted Date Comments Sulfa Antibiotics Other (See Comments) 08/11/19 19 unknown Medications Medication Sig Dispensed Refills Start Date End Date Status Probiotic Product (PROBIOTIC PO) Take by mouth. Active multivitamin Tab tablet Take 1 tablet by mouth daily. 05/16/2009 Active cyclobenzaprine (FLEXERIL) 5 MG tablet Take 5-10 mg by mouth nightly as needed. 09/27/2022 Active calcium carbonate (CALTRATE) 1500 (600 Ca) MG tablet Take 1 tablet by mouth daily. 05/16/2009 Active albuterol (PROVENTIL HFA; VENTOLIN HFA) 108 (90 Base) MCG/ACT inhaler INHALE 2 PUFFS DIRECTED ONCE A DAY 11/22/2022 Active Social History Tobacco Use Types Packs/Day Years Used Date Smoking Tobacco: Never Assessed Sex and Gender Information Value Date Recorded Sex Assigned at Unknown 11/19/2022 4:20 PM EDT Gender Identity Choose not to disclose 4:20 PM EDT Sexual Orientation Choose not to disclose 2022 4:20 PM EDT Last Filed Vital Signs Vital Sign Reading Time Taken Comments Blood Pressure 131/87 01/15/2024 4:07 PM EDT Pulse - - Temperature - - Respiratory Rate - - Oxygen Saturation - - Inhaled Oxygen Concentration - - Weight 83.5 kg (184 lb) 01/15/2024 4:07 PM EDT Height 177.8 cm (5' 10 ) 01/15/2024 4:07 PM EDT Body Mass Index 26.4 01/15/2024 4:07 PM EDT Plan of Treatment Health Maintenance Due Date Last Done Comments Hepatitis C Virus Screening 1966 HIV Screening 1979 DTaP/Tdap/Td Vaccines (1 - Tdap) 1985 Hepatitis B Vaccines (1 of 3 - 19+ 3-dose series) 1985 Mammogram 2006 Colonoscopy 2011 Pneumococcal Vaccines 50+ (1 of 1 - PCV) 02/06/2016 Zoster (Shingles) Vaccine (1 of 2) 02/06/2016 Influenza Vaccine 12/05/2023 COVID-19 Vaccine (2 - 2023-2 5 season) 2024 09/03/2022 Pap Smear (Ages 21-65) 04/24/2026 3, 12/26/2022 Pneumococcal Vaccine: Pediatric (0-5 Years) and At-Risk Patients (6 to 49 Years) Aged Out No longer eligible b ased on patient's age to complete this topic Procedures Procedure Name Priority Date/Time Associated Diagnosis Comments THINPREP PAP TEST (AGILE BUSINESS ANALYST) WITH HPV REFLEX Routine 04/24/2023 4:46 PM EST Unsatisfactory cervical Papanicolaou smear from Last 3 Months or Most Recently Relevant to Health Maintenance Results * ThinPrep Pap Test with HPV Reflex on ASCUS (04/24/2023 4:46 PM EST) 04/24/2023 4:46 PM EST Narrative [facility] - 05/07/2023 7:28 AM EST To view the final report click the scan hyperlink below. Harley Huerta MD LAB [facility]B PATH[facility] [address] [place] [address], from Last 3 Months or Most Recently Relevant to Health Maintenance Care Teams Hand Counter Relationship Specialty Start Date End Date Edy Pedersen [address] [place] [address] PCP - General
--- OUTSIDE RECORDS SUMMARY | 2024-07-15 17:15 | XMS_ITS ---
Author Name [facility] Organization Unknown History of Medication Use Medication Directions Dispensed Refills Start Date End Date Stat albuterol (VENTOLIN HFA) 90 mcg/actuation inhaler Inhale 2 puffs every 6 (six) hours as needed for wheezing active cyclobenzaprine (FLEXERIL) 5 MG tablet Take 5-10 mg by mouth nightly as needed. 09/27/2022 active Encounters Encounter Type Encounter Reason Primary Diagnosis Location Date Ambulatory Respiratory Acute pharyngiti s, unspecified [facility] 07/04/2024 Ambulatory Gynecologic Exam Gynecologic Exam [facility] 01/15/2024 Ambulatory Unsatisfactory cytologic smear of cervix Unsatisfactory cytologic smear of cervix [facility] 04/24/2023 Ambulatory Encounter for gynecological examination (general) (routine) without abnormal findings Encounter for gynecological examination (general) (routine) without abnormal findings [facility] 12/26/2022 Care Team Organization Name Specialty Phone Email Start Date End Da te [facility] NO PCP Primary Care 07/04 [place] [facility] Primary Care 12/26/2022 12/26/2022 [facility] Primary Care 12/26/2022
== END 2024-07-15 15:11 | disposition home or self-care (01) ==
LOC: HO.HMCHD 14:38
PROVIDERS: PCP Internal Medicine; Visit Provider Internal Medicine
DX: J06.9 Acute upper respiratory infection, unspecified (principal)

== ENCOUNTER → 2024-07-15 14:38 | Outpatient (BNVA) | payer OTHER, SELFPAY | PROVIDERS: PCP Internal Medicine; Visit Provider Internal Medicine ==

== ENCOUNTER 2024-12-24 12:41 | Outpatient (AMB) | payer OTHER, SELFPAY ==
[2024-12-24 13:06] VITALS: BP 110/72; PULSE 52; RESP 16; TEMP 36.9; O2SAT 94; BMI 26.3
--- NOTE | 2024-12-24 13:06 | MHC.PC.OV ---
Vital Signs 12/24/24 13:06 Height 5 ft 10 in Weight 183 lb BMI 26.3 BP 110/72 Blood Pressure Location Lt brachial Position Sitting Respiration 16 Pulse 52 Pulse Source Pulse Oximeter Temp 98.5 F Temp Source Oral Pulse Oximetry (%) 94 Oxygen Delivery Method Room Air Intake Visit Reasons: TERRA COTTA ROOFER // Requesting a PE Intake Note: Pt is here today as a New Patient to [facility] care/ PE: last mammogram 02/19/24, Allergies latex (LATEX) Allergy (Intermediate, Verified 12/24/24 13:17) RASH Sulfa (Sulfonamide Antibiotics) (Sulfa(Sulfonamide Antibiotics)) Allergy (Unknown, Verified 12/24/24 13:17) UNKNOWN Medication List - Last Reconciled 12/24/24 by Kim Jimenez MD albuterol sulfate 90 mcg/actuation inhalation aspirin (Adult Low Dose Aspirin) 81 mg PO DAILY calcium carbonate-vitamin D3 600 mg-5 mcg (200 unit) 1 tab PO DAILY lactobacillus comb no.10 (Probiotic) 20,000 mmu cells PO DAILY loratadine 10 mg PO DAILY multivitamin 1 tab PO DAILY triamcinolone acetonide (Nasacort) 1 spray intranasal DAILY vitamin B complex 1 tab PO DAILY Tobacco use date assessed: 12/24/24 Dental Screening Dental Screen Date: 12/24/24 Did you have a dental visit in the last 12 months?: Yes Did you have a dental problem in the last 6 months where you did not have access to dental care?: No Was dental information given to patient?: Patient has dentist HPI TERRA COTTA ROOFER // Requesting a PE HPI Details 51-year-old lady, new to practice, here to establish care with a new PCP and for physical exam. She has history of Mobitz type 1 av block, seen by Cardiology, not significantly symptomatic at this point time. No pharmacotherapy indicated, advised to avoid stimulants. Has exercise-induced asthma, currently controlled with using albuterol inhaler prior to exercise. Uses Nasacort nasal spray as needed for her seasonal environmental allergies [facility] Medical History (Updated 12/24/24 @ 13:58 by Kim Jimenez MD) Hypertrophic toenail Mobitz (type) I (Wenckebach's) atrioventricular block Mobitz type 1 second degree atrioventricular block Exercise-induced asthma PVC (premature ventricular contraction) Surgical History (Updated 12/24/24 @ 13:36 by Kim Jimenez MD) [place] teeth removed H/O eye surgery Hx of tonsillectomy Family History (Updated 12/24/24 @ 13:35 by Kim Jimenez MD) Paternal Grandfather No problems noted. Mother Rheumatic arteritis Eczema CVA (cerebral vascular accident) Father Lung cancer Sister Hypothyroidism (acquired) Social History Housing: House Alcohol intake: current Alcohol intake frequency: a few times a month Patient Tobacco Use Status: Never used Tobacco e-Cigarette/Vaping Use: Never Used service: No Current occupational status: employed Cognitive needs: No Hearing needs: No Vision needs: Yes (rx glasses) Questionnaire PHQ-9 Over the last 2 weeks, how often have you been bothered by any of the following problems? 1. Little interest or pleasure in doing things: not at all 2. Feeling down, depressed, or hopeless: not at all 3. Trouble falling or staying asleep, or sleeping too much: not at all 4. Feeling tired or having little energy: several days 5. Poor appetite or overeating: not at all 6. Feeling bad about yourself - or that you are a failure or have let yourself or your family down: not at all 7. Trouble concentrating on things, such as reading the newspaper or watching television: not at all 8. Moving or speaking so slowly that other people could have noticed. Or the opposite - being so fidgety or restless that you have been moving around a lot more than usual: not at all 9. Thoughts that you would be better off or of hurting yourself in some way: not at all Total score: 1 Depression Screening Interpretation: Negative Depression Screening Done: Yes 56557 - PHQ-9 Billing: Yes Source: Developed by Drs. Quintin Lorenzo, Rosemarie Malik, Dean Polo and colleagues, with an educational sophie from [employer]. Thrive Questionnaire Date Thrive assessed: 12/21/24 I am a: Patient What is your living situation today?: I choose not to answer this question Within the past 12 months, did the food you bought not last and you didn't have the money to get more?: Never true Within the past 12 months, did you worry whether your food would run out before you got money to buy more?: I choose not to answer this question Do you have trouble paying for medicines?: I choose not to answer this question Do you have trouble getting transportation to medical appointments?: No Do you have trouble paying your heating and electricity bill?: I choose not to answer this question Do you have trouble taking care of your child, family member or friend?: No Do you have trouble with day-to-day activities such as bathing, preparing meals, shopping, managing finances, etc.?: No Are you currently unemployed and looking for a job?: No Are you interested in more education?: I choose not to answer this question Please select the resources that you would like help with: None Currently or been in a relationship where the following occur: No concerns reported THRIVE Score: 0 AUDIT C Alcohol Use Questionnaire (AUDIT-C) 1. How often do you have a drink containing alcohol?: 2-4 times a month 2. How many drinks containing alcohol do you have on a typical day when you are drinking?: 1 or 2 3. How often do you have six or more drinks on one occasion?: Never Total Score: 2 Score Reviewed/Action Taken: Yes BETTY-7 AMB Questionnaire BETTY-7 Date BETTY - 7 assessed: 07/15/24 Feeling nervous, anxious, or on edge: 0 = Not at all Not being able to stop or control worryin = Not at all Worrying too much about different things: 0 = Not at all Trouble relaxin = Not at all Being so restless that it is hard to sit still: 0 = Not at all Becoming easily annoyed or irritable: 1 = Several days Feeling afraid as if something awful might happen: 0 = Not at all Total BETTY-7 score (0-4 normal; 5-9 mild; 10-14 moderate; 15-21 severe): 1 Source: Developed by Drs. Quintin Lorenzo, Rosemarie Malik, Dean Polo and colleagues, with an educational sophie from [employer] BETTY-7 Assessment Billing BETTY-7 Assessment Tool: BETTY-7 Assessment 00664 Review of Systems Const Reports no additional complaints Eyes Details: Sees an buoy tender in [place] , wears reading glasses ENT Details: Sees a dentist in [place] for her cleaning Card Denies chest pain, Denies rapid heart rate, Denies irregular heart rhythm and Denies lightheadedness Resp Reports no additional complaints GI Reports no additional complaints Reports no additional complaints Musc Reports no additional complaints Skin/Breast Denies breast pain, Denies breast mass and Denies rash Neuro Reports no additional complaints Psych Reports no additional complaints Endo Reports no additional complaints Amador/Lymph Reports no additional complaints Aller/Immun Reports as per HPI and Reports seasonal rhinorrhea Physical exam (Primary Care) Vital Signs: Last Vital Signs Temp 98.5 F 12/24/24 13:06 Pulse 52 12/24/24 13:06 Resp 16 12/24/24 13:06 BP 110/72 12/24/24 13:06 Pulse Ox 94 12/24/24 13:06 Oxygen Delivery Method Room Air 12/24/24 13:06 BMI result Body Mass Index 26.3 Tobacco/Smoking Status: Tobacco use Status Tobacco use date assessed 12/24/24 12/24/24 13:17 Patient Tobacco Use Status Never used Tobacco 12/24/24 13:08 e-Cigarette/Vaping Use Never Used 12/24/24 13:17 PHQ-9: PHQ-9 Score PHQ-9: Total score 1 12/24/24 13:59 Depression Screening Interpretation: Negative Thrive Assessment: Date of Thrive Assessment Date Thrive assessed 12/21/24 12/24/24 13:08 Currently or been in a relationship where the following occur: No concerns reported Const General: no acute distress and alert Orientation/consciousness: patient oriented x3 HENMT Head: Yes normocephalic Ears: external ears normal, TM's normal bilaterally and EAC's normal General nose exam: Normal external nose present and No nasal discharge present Face and sinus: Yes face symmetric Mouth: Normal oral and palatal mucosa present and moist mucous membranes Eyes General: appearance normal, both eyes and all related structures Eyelids: Yes eyelids normal Conjunctivae: conjunctivae normal Sclerae: sclerae normal Pupils: Equal, round and reactive pupils present EOM: EOMs intact bilaterally Neck Neck: Yes full ROM, Yes no lymphadenopathy and Yes supple Chest Breast/axilla palpation: normal palpation of the breasts Resp Effort & Inspection: normal respiratory effort and able to speak in complete sentences Auscultation: clear to auscultation bilaterally Cardio Rate: bradycardic Rhythm: regular rhythm Heart sounds: S1 normal heart sound present and S2 normal heart sound present GI Palpation (GI): Soft to palpation, nontender, no guarding and no masses Auscultation: normal bowel sounds General: Yes no CVA tenderness Back/Spine/Pelvis Back: no CVA tenderness and No back tenderness Skin General skin exam: no rashes or lesions noted Nails: yellow and thickened (Big toenail) Neuro General: patient oriented x3, gait normal, moves all extremities, Normal light touch and pain sensation, no focal motor deficits and CN's II-XI intact bilaterally Cranial nerves: Yes Equal, round and reactive pupils present Cognition (Neuro): normal cognition Gait exam (Neuro): Normal gait present Motor exam (neuro): 5/5 motor strength present throughout Extrem General: Yes normal to inspection, Yes full ROM, Yes no joint enlargement, Yes no pedal edema and Yes normal gait Psych Appearance: grossly normal and well kempt Mental Status: mental status grossly normal Speech and movement: Normal speech and movement present Affect: normal affect Coding Level of Care Code New Pt Prev Care 40-64y(46878) Diagnoses Hypertrophic toenail L60.2 Mobitz type 1 second degree atrioventricular block I44.1 Exercise-induced asthma J45.990 Advance directive discussed with patient Z71.89 Annual visit for general adult medical examination with abnormal findings Z00.01 Additional Codes BETTY-7 Assessment Billing - BETTY-7 Assessment Tool: BETTY-7 Assessment 29334 ([id number]) PHQ-9 - 00555 - PHQ-9 Billing: Yes ([id number]) Assessment & Plan Assessment & Plan (1) Hypertrophic toenail: Code(s): L60.2 - Onychogryphosis Category: Medical Plan: Podiatry referral ordered (2) Mobitz type 1 second degree atrioventricular block: Comment: during sleep, noted on holter in 2014 and 04/2020 Code(s): I44.1 - Atrioventricular block, second degree Category: Medical Plan: Seen by Cardiology, currently asymptomatic, no pharmacotherapy indicated. Advised to avoid stimulants (3) Exercise-induced asthma: Code(s): J45.990 - Exercise induced bronchospasm Category: Medical Plan: Uses albuterol inhaler as needed prior to exercise (4) Advance directive discussed with patient: Code(s): Z71.89 - Other specified counseling Plan: Initiated the conversation about Advanced Directives. Advanced Directives help patients prepare for current and future decisions about their medical treatment and place of care. Discussed with patient that it is a process where a patients current condition and prognosis are reviewed, their wishes for information regarding their illness are elicited, and likely medical dilemmas are presented and options discussed. Healthcare proxy form completed today. The form can be amended as needed, reviewed yearly and make changes as needed (5) Annual visit for general adult medical examination with abnormal findings: Code(s): Z00.01 - Encounter for general adult medical examination with abnormal findings Plan: Will check appropriate labs. Continue regular dental visit every 6 months and regular eye exams, at least every 2 years. Take adequate calcium in diet and vitamin-D 3 at 2000 IU per cap once a day, in addition to weight-bearing exercises to help maintain good muscle tone and weight control. Instructed to do self-breast exam, and up-to-date with her yearly mammogram. Goes to her own OBGYN for her routine Pap and pelvic exam. Reminded to get her yearly flu shot, not want to get further COVID vaccines, states that she is up-to-date with her tetanus booster Orders: Orders Complete Blood Count Auto Diff 12/24/24 I44.1 - Atrioventricular block, second degree, J45.990 - Exercise induced bronchospasm, R00.1 - Bradycardia, unspecified, Z13.1 - Encounter for screening for diabetes mellitus, Z13.220 - Encounter for screening for lipoid disorders, Z78.0 - Asymptomatic menopausal state Basic Metabolic Panel Fasting 12/24/24 I44.1 - Atrioventricular block, second degree, J45.990 - Exercise induced bronchospasm, R00.1 - Bradycardia, unspecified, Z13.1 - Encounter for screening for diabetes mellitus, Z13.220 - Encounter for screening for lipoid disorders, Z78.0 - Asymptomatic menopausal state Alanine Aminotransferase 12/24/24 I44.1 - Atrioventricular block, second degree, J45.990 - Exercise induced bronchospasm, R00.1 - Bradycardia, unspecified, Z13.1 - Encounter for screening for diabetes mellitus, Z13.220 - Encounter for screening for lipoid disorders, Z78.0 - Asymptomatic menopausal state Lipid Panel 12/24/24 I44.1 - Atrioventricular block, second degree, J45.990 - Exercise induced bronchospasm, R00.1 - Bradycardia, unspecified, Z13.1 - Encounter for screening for diabetes mellitus, Z13.220 - Encounter for screening for lipoid disorders, Z78.0 - Asymptomatic menopausal state Aspartate Amino Transferase 12/24/24 I44.1 - Atrioventricular block, second degree, J45.990 - Exercise induced bronchospasm, R00.1 - Bradycardia, unspecified, Z13.1 - Encounter for screening for diabetes mellitus, Z13.220 - Encounter for screening for lipoid disorders, Z78.0 - Asymptomatic menopausal state Vitamin D 25-OH Total 12/24/24 I44.1 - Atrioventricular block, second degree, J45.990 - Exercise induced bronchospasm, R00.1 - Bradycardia, unspecified, Z13.1 - Encounter for screening for diabetes mellitus, Z13.220 - Encounter for screening for lipoid disorders, Z78.0 - Asymptomatic menopausal state Referrals Podiatry Referral L60.2 - Onychogryphosis
== END 2024-12-24 13:58 | disposition home or self-care (01) ==
LOC: HO.HMCC 12:42
PROVIDERS: PCP Internal Medicine; Visit Provider Internal Medicine
DX: L60.2 Onychogryphosis (principal); I44.1 Atrioventricular block, second degree; J45.990 Exercise induced bronchospasm; Z71.89 Other specified counseling; Z00.01 Encounter for general adult medical examination with abnormal findings

== ENCOUNTER → 2024-12-24 12:41 | Outpatient (BNVA) | payer OTHER, SELFPAY | PROVIDERS: PCP Internal Medicine; Visit Provider Internal Medicine | DX: Z00.01 Encounter for general adult medical examination with abnormal findings (principal); L60.2 Onychogryphosis; I44.1 Atrioventricular block, second degree; J45.990 Exercise induced bronchospasm; Z71.89 Other specified counseling | CPT/HCPCS: 96127 ==

== ENCOUNTER 2025-01-20 14:43 | Outpatient (AMB) | payer OTHER, SELFPAY ==
--- NOTE | 2025-01-20 14:53 | A.OFFVIS_ITS ---
Vital Signs 01/20/25 14:56 Height 5 ft 10 in Weight 180 lb BMI 25.8 Intake Visit Reasons: Hyptrophic toenail Intake Note: Marly is a 59 year old female who presents to the office today as a new patient visit referred by her PCP Dr. Jimenez for Onychogryphosis. She states it is predominately located on her left foot on the hallux,middle,pinky toe. Patient mentions she has bilateral bunions as well but is not interested in treatment. She reports no pain just discoloration on her hallux,middle,pinky toes. Patient states if she needs to be treated for a fungal infection she is okay with topical treatment not oral,due to the possible effect the oral medication may have on the liver. Allergies latex (LATEX) Allergy (Intermediate, Verified 01/20/25 14:57) RASH Sulfa (Sulfonamide Antibiotics) (Sulfa(Sulfonamide Antibiotics)) Allergy (Unknown, Verified 01/20/25 14:57) UNKNOWN Medication List - Last Reconciled 01/20/25 by Zack Morgan DPM albuterol sulfate 90 mcg/actuation inhalation aspirin (Adult Low Dose Aspirin) 81 mg PO DAILY calcium carbonate-vitamin D3 600 mg-5 mcg (200 unit) 1 tab PO DAILY ciclopirox 0.77% 1 appl topical DAILY 8 months efinaconazole 10% (Jublia) 1 appl topical DAILY 48 weeks lactobacillus comb no.10 (Probiotic) 20,000 mmu cells PO DAILY loratadine 10 mg PO DAILY multivitamin 1 tab PO DAILY triamcinolone acetonide (Nasacort) 1 spray intranasal DAILY vitamin B complex 1 tab PO DAILY HPI HPI Hyptrophic toenail: Details: 59-year-old female seen today for initial evaluation of nail discoloration to her left foot. She notes a history of fungal toenails and has tried [id number]-[id number] topical treatment in the past however did not see any improvement. She has severe around her however stopped running due to her knees in her bunions. She states that she does not wear open toed shoe wear due to her bunions and her fungal toenails to the left foot. [facility] Medical History (Updated 01/20/25 @ 15:38 by Zack Morgan DPM) Hypertrophic toenail Mobitz (type) I (Wenckebach's) atrioventricular block Mobitz type 1 second degree atrioventricular block Exercise-induced asthma PVC (premature ventricular contraction) Surgical History (Updated 12/24/24 @ 13:36 by Kim Jimenez MD) [place] teeth removed H/O eye surgery Hx of tonsillectomy Family History (Updated 12/24/24 @ 13:35 by Kim Jimenez MD) Paternal Grandfather No problems noted. Mother Rheumatic arteritis Eczema CVA (cerebral vascular accident) Father Lung cancer Sister Hypothyroidism (acquired) Social History Housing: House Alcohol intake: current Alcohol intake frequency: a few times a month Patient Tobacco Use Status: Never used Tobacco e-Cigarette/Vaping Use: Never Used service: No Current occupational status: employed Cognitive needs: No Hearing needs: No Vision needs: Yes (rx glasses) Review of Systems Const All systems reviewed & are unremarkable except as noted in HPI and below Physical Exam Extrem Other: *Bilateral Lower Extremity Focused Foot Exam Vascular: DP/PT 2/4, CFT<3s to digits, TG warm to cool, no pedal edema, pedal hair present Derm: Skin: No open lesions, ulcerations, or calluses. Interdigital spaces: Clear, no maceration or fungal infection. Nails: Dystrophic thickened left hallux left 3rd and left 5th toenails. Left hallux nail with subungual debris and discoloration to the medial and lateral nail borders. Neuro: Protective sensation grossly intact to bilateral lower extremities. Msk: Deformities: Moderate right hallux track bound hallux valgus deformity, dorsiflexion and proximally 15 degrees. Moderate to severe left hallux valgus deformity, track bound, 15 degrees of dorsiflexion. Bilateral 2nd MTPJ extension deformity, negative Roldan test bilaterally. No pressure/keratotic lesion to the plantar aspect of the 2nd metatarsal head. Muscle strength: 5/5 in all muscle groups. Gait: Normal, no antalgic or steppage gait observed. Footwear Assessment: Shoes inspected; appropriate fit, no excessive wear, or foreign objects noted. Office Procedures AMB Debridement/Avulsion Podia Details: Procedure: Left hallux Nail debridement/biopsy Indication: Hypertrophic, discolored, thickened left hallux nail Anesthesia: None Description: The digit was prepped. A sterile nail Nipper was used to resect the distal portion of the nail. The specimen was collected and sent for pathology. Tolerance: Patient tolerated procedure well, no immediate complications. 39338-Phhursjdayd of Nail <6 Procedure code (CPT) selection complete Results Reviewed Results Reviewed: Laboratory Tests 11/29/23 10:43 AST 18 ALT 21 Assessment & Plan Assessment & Plan (1) Tinea unguium: Comment: Left 1st 3rd and 5th toenails Code(s): B35.1 - Tinea unguium Category: Medical Plan: * Nail biopsy performed of the left hallux nail. * Discussed treatment options including topical treatment versus oral antifungal medications. * Explained that oral antifungals such as terbinafine (Lamisil) may cause gastrointestinal upset, headache, rash, taste disturbances, and hepatotoxicity. Baseline and monthly liver function monitoring is recommended during therapy. * Patient states she is not interested in oral treatment at this time. * Rx Jublia which may not be improved by insurance however has higher efficacy. * Rx Ciclopirox. Instructed to apply for at least 3-6 months. Explained that clinical improvement we will take several months, typically 6-8 months before seeing improvement. * Patient was counseled on the importance of anti-fungal foot hygiene, including daily washing and thorough drying of feet, regular changing of socks, and use of breathable footwear. Recommended antifungal sprays for her shoes. Recommended antiperspirant for her feet. Education provided on keeping toenails trimmed and clean to reduce risk of fungal infections. Preventive strategies discussed to minimize recurrence of fungal infections. * Follow up in 3 months. (2) Hallux valgus, acquired, bilateral: Code(s): M20.11 - Hallux valgus (acquired), right foot; M20.12 - Hallux valgus (acquired), left foot Category: Medical Plan: * Explained the current clinical progression of her bunion deformity which is now resulting in arthritic changes to her MPJ. The patient states that she does have pain from it however is not interested in any surgical treatment at this time. * Recommended bunion sleeves to slow down progression of the deformity. (3) Hammertoe of second toe of right foot: Code(s): M20.41 - Other hammer toe(s) (acquired), right foot Category: Medical Plan: * Recommended bunion sleeves to prevent worsening 2nd digit overlapping deformity and prevent 2nd Metatarsal-phalangeal joint capsulitis/plantar plate injury. (4) Hammertoe of second toe of left foot: Code(s): M20.42 - Other hammer toe(s) (acquired), left foot Category: Medical Plan: * Recommended bunion sleeves to prevent worsening 2nd digit overlapping deformity and prevent 2nd Metatarsal-phalangeal joint capsulitis/plantar plate injury. Orders: Orders AMB Debridement/Avulsion Podiatry Today B35.1 - Tinea unguium Surgical Today B35.1 - Tinea unguium Fungus Cult Hair/Skin/Nail Today B35.1 - Tinea unguium Medications: New efinaconazole 10% (Jublia) 1 appl topical DAILY 4 mL 3RF onychomycosis 48 weeks B35.1 - Tinea unguium ciclopirox 0.77% 1 appl topical DAILY 6.6 mL 3RF Onychomycosis 8 months B35.1 - Tinea unguium Coding Level of Care Code New Pt Level 3 (94259) Diagnoses Tinea unguium B35.1 Hallux valgus, acquired, bilateral M20.11; M20.12 Hammertoe of second toe of right foot M20.41 Hammertoe of second toe of left foot M20.42 CPT Codes Skin Debridement - CPT: 72658-Izwfkasllhp of Nail <6 ([id number]) Time Spent (min) 35
[2025-01-20 14:56] VITALS: BMI 25.8
--- OUTSIDE RECORDS SUMMARY | 2025-01-20 18:21 | XMS_ITS | Patient Health Record ---
Author Organization [facility] Address [address] [place] [address] Care Team Providers Care Slip Caster Name Role Phone Fahad (RETIRED) Gadiel SUE Primary Care Provide Davide Marsh Jr Unavailable Allergies Allergen (clinical drug ingredient) Drug/Non Drug Allergy documented on EMR Reaction Allergy Type Onset Date Status sulfamethoxazole / trimethoprim Bactrim Unknown Drug Allergy Active Reason For Referral No Information Medications Medication SIG (Take, Route, Frequency, Duration) Notes Start Date End Date Status Melatin 3-1 MG Orally Activ e Calcium + D3 600-200 MG-UNIT Orally Active Multi Vitamin/Minerals - Orally Active Probiotic - Orally Active MoviPrep 100 GM as directed before colonoscopy Orally for 1 dose 07/11/2016 Active Microgestin 24 Fe 1-20 MG-MCG Orally Active Aspir-81 81 MG 1 tablet Orally Once a day Active Vitamin B 12 Active Nasacort Allergy 24HR 55 MCG/ACT 1 puff in each nostril Nasally Once a day Active ProAir HFA 108 (90 Base) MCG/ACT 2 puffs as needed Inhalation every 4 hrs Active Ambien CR 12.5 MG 1 tablet at bedtime as needed Orally Once a day Active Problems Problem Type SNOMED Code ICD Code Onset Dates Problem Status W/U Status Risk Notes Problem [id number] Colon cancer screening (Z12.11) Active confirmed Problem 295450421 Right lower quadrant abdominal pain (R10.31) Active confirmed Plan Of Treatment Future Test Test Name Order Date COLONOSCOPY 07/11/2016 Insurance Providers Payer Name Payer Address Payer Phone Subscriber Number Group Number Insured Name Patient Relationship to Insured Coverage Start Date Coverage End Date [facility] [address] [facility] [phone] [id number] MADONNA ANGELES Self - patient is the insured Medical (General) History Medical History History ICD Code exercise-induced asthma cardiac arrhythmia, bradycardia Surgical History Surgery Date(Month/Year) tonsillectomy wisdom teeth extraction eye surgery
--- OUTSIDE RECORDS SUMMARY | 2025-01-20 18:21 | XMS_ITS ---
Author Name [facility] Organization Unknown History of Medication Use Medication Directions Dispensed Refills Start Date End Date Stat us guaiFENesin (MUCINEX) 600 mg Ta12 Take 600-1,200 mg by mouth 2 (two) times a day as needed (Cough) for up to 7 days Max dose 2,400mg per day. 12/07/2024 active sodium chloride (OCEAN) 0.65 % nasal spray Instill 1 spray into each nostril as needed for congestion 12/07/2024 active estradiol (VAGIFEM) 10 MCG vaginal tablet Insert 1 tablet (10 mcg total) into the vagina 2 (two) times a week. 09/17/2024 active nitrofurantoin, macrocrystal-monohydra te, (MACROBID) 100 MG capsule Take 1 capsule (100 mg total) by mouth every 12 (twelve) hours for 5 days 09/01/2024 active cyclobenzaprine (FLEXERIL) 5 MG tablet Take 5-10 mg by mouth nightly as needed. 09/27/2022 active zolpidem (AMBIEN) 5 MG tablet TAKE 1 TABLET BY MOUTH AT BEDTIME NEEDED 07/09/2018 12/07/2024 aborted PROAIR HFA 90 mcg/actuation inhaler INHALE 2 PUFF USING INHALER ONCE A DAY 05/09/2018 12/07/2024 aborted triamcinolone (NASACORT) 55 mcg nasal inhaler Instill 2 sprays into each nostril daily 12/07/2024 active aspirin (ABY LOW DOSE ASPIRIN) 81 MG tablet Take 1 tablet (81 mg total) by mouth daily 09/01/2024 aborted albuterol (VENTOLIN HFA) 90 mcg/actuation inhaler Inhale 2 puffs every 6 (six) hours as needed for wheezing active albuterol (VENTOLIN HFA) 90 mcg/actuation inhaler Inhale 2 puffs every 6 (six) hours as needed for wheezing active loratadine (ALLERCLEAR) 10 mg tablet Take 10 mg by mouth daily. active triamcinolone (NASACORT) 55 mcg nasal inhaler Instill 2 sprays into each nostril daily active Allergies Allergen Reaction Severity Comment Documented Date Source Statu s SULFAMETHOXAZOLE-T RIMETHOPRIM OTHER (SEE COMMENTS) As child 07/04/2024 [facility] active SULFA (SULFONAMIDE ANTIBIOTICS) OTHER (SEE COMMENTS) unknown 08/10/2018 [facility] active SULFA ANTIBIOTICS OTHER (SEE COMMENTS) unknown 08/10/2018 [facility] active Problems Problem Status Onset Date Problem Type Date of Resolution Source Upper respiratory infection, acute active EncounterDiagnosisAct [facility] Encounters Encounter Type Encounter Reason Primary Diagnosis Location Date Ambulatory Respiratory Pain, unspecified [facility] 12/09/2024 Ambulatory Respiratory [facility] 12/07/2024 Ambulatory Unspecified dyspareunia Unspecified dyspareunia [facility] 09/16/2024 Ambulatory or Rectal Dysuria [facility] 09/01/2024 Ambulatory Respiratory Acute pharyngiti s, unspecified [facility] 07/04/2024 Ambulatory Gynecologic Exam Gynecologic Exam [facility] [employer] 01/15/2024 Ambulatory Unsatisfactory cytologic smear of cervix Unsatisfactory cytologic smear of cervix [email or web address] 04/24/2023 Ambulatory Encounter for gynecological examination (general) (routine) without abnormal findings Encounter for gynecological examination (general) (routine) without abnormal findings [email or web address] 12/26/2022 Care Team Organization Name Specialty Phone Email Start Date End Da te [facility] NO PCP Primary Care 12/09 [email or web address] 09/16/2024 10/15/[address] [facility] NO PCP Primary Care 07/04 [facility] Primary Care 12/26/2022 10/15/2024 [facility] Primary Care 12/26/2022 12/26/2022
--- OUTSIDE RECORDS SUMMARY | 2025-01-20 18:21 | XMS_ITS | Encounter Summary ---
Author Organization [facility] Address [address] [place] [address] Care Team Providers Care Office Technologist Name Role Phone Edy Pedersen Primary Care Provider +1 -[phone] Reason for Visit * Reason Onset Date Comments Other 09/02/2024 Encounter Details Date Type Department Care Team (Late st Contact Info) Description 09/02/2024 Telephone Edy Gregory Department Of Dice Table Operator [place] [address] [place] [address] Harley Huerta MD [address] [place] [address] Other Social History Tobacco Use Types Packs/Day Years Used Date Smoking Tobacco: Never Assessed Comments No Sex and Gender Information Value Date Recorded Sex Assigned at Female 09/15/2024 5:50 PM EDT Legal Sex Female 4:20 PM EDT Gender Identity Female 09/15/2024 5:50 PM EDT Sexual Orientation Heterosexual (straight) 09/15 5:50 PM EDT documented as of this encounter Miscellaneous Notes * Telephone Encounter - Harley Huerta MD - 09/02/2024 6:09 PM EDT Patient now is being sexually active for the first time in many years but having pain told the patient she needs to come in for an appointment Can you get an appointment to see me you can feel free to sneak her in early in the morning or I will see her at lunchtime because I would like to get her in over the next 1 or 2 weeks thanks documented in this encounter Plan of Treatment Upcoming Encounters Date Type Department Care Team (Late st Contact Info) Description 03/05/2025 1:00 PM EDT Office Visit Edy Gregory Department Of Dice Table Operator [place] [address] [place] [address] Harley Hureta MD [address] [place] [address] documented as of this encounter Visit Diagnoses Not on filedocumented in this encounter Care Teams Office Technologist Relationship Specialty Start Date End Date Edy Pedersen [address] [place] [address] PCP - General documented as of this encounter
--- OUTSIDE RECORDS SUMMARY | 2025-01-20 18:21 | XMS_ITS | Clinical Summary ---
Author Organization [facility] Address [address] [place] [address] Care Team Providers Care Ticket Scheduler Name Role Phone Edy Pedersen Primary Care Provider +1 [phone] Allergies Active Allergy Reactions Criticality Noted Date Comments Sulfa Antibiotics Other (See Comments) 08/11/19 19 unknown Medications Probiotic Product (PROBIOTIC PO) Take by mouth. Active multivitamin Tab tablet Take 1 tablet by mouth daily. 05/16/2009 Active calcium carbonate (CALTRATE) 1500 (600 Ca) MG tablet Take 1 tablet by mouth daily. 05/16/2009 Active albuterol (PROVENTIL HFA; VENTOLIN HFA) 108 (90 Base) MCG/ACT inhaler INHALE 2 PUFFS DIRECTED ONCE A DAY 11/22/2022 Active estradiol (VAGIFEM) 10 MCG vaginal tabletIndicatio ns:Dyspareunia in female Insert 1 tablet (10 mcg total) into the vagina 2 (two) times a week. 24 tablet 3 09/17/2024 Active Encounters Date Type Department Care Team Description 10/23/2024 Telephone Edy [facility] Department Of Candle Pourer [address] [address] Harley Huerta MD from Last 3 Months Social History Tobacco Use Types Packs/Day Years Used Date Smoking Tobacco: Never Assessed Comments No Sex and Gender Information Value Date Recorded Sex Assigned at Female 09/15/2024 5:50 PM EDT Legal Sex Female 4:20 PM EDT Gender Identity Female 09/15/2024 5:50 PM EDT Sexual Orientation Heterosexual (straight) 09/15 5:50 PM EDT Last Filed Vital Signs Vital Sign Reading Time Taken Comments Blood Pressure 138/90 09/16/2024 3:59 PM EDT Pulse - - Temperature - - Respiratory Rate - - Oxygen Saturation - - Inhaled Oxygen Concentration - - Weight 83.5 kg (184 lb) 01/15/2024 4:07 PM EDT Height 177.8 cm (5' 10 ) 09/16/2024 3:59 PM EDT Body Mass Index 26.4 01/15/2024 4:07 PM EDT Plan of Treatment Upcoming Encounters Date Type Department Care Team (Late st Contact Info) Description 03/05/2025 1:00 PM EDT Office Visit [facility] Department Of Candle Pourer [place] [address] [place] [address] Harley Huerta MD [address] [place] [address] Health Maintenance Due Date Last Done Comments Hepatitis C Virus Screening 1966 HIV Screening 1979 DTaP/Tdap/Td Vaccines (1 - Tdap) 1985 Hepatitis B Vaccines (1 of 3 - 19+ 3-dose series) 1985 Mammogram 2006 Colonoscopy 2011 Pneumococcal Vaccines 50+ (1 of 1 - PCV) 02/06/2016 Zoster (Shingles) Vaccine (1 of 2) 02/06/2016 Influenza Vaccine 12/04/2024 COVID-19 Vaccine (2 - 2024- season) 01/04/202505/2022 Pap Smear (Ages 21-65) 04/24/2026 04/24/2023, 2022 Procedures Procedure Name Priority Date/Time Associated Diagnosis Comments THINPREP PAP TEST (TRANSITION PROGRAM MANAGER) WITH HPV REFLEX Routine 04/24/2023 4:46 PM EST Unsatisfactory cervical Papanicolaou smear from Last 3 Months or Most Recently Relevant to Health Maintenance Results * ThinPrep Pap Test with HPV Reflex on ASCUS (04/24/2023 4:46 PM EST) 04/24/2023 4:46 PM EST Narrative [facility] - 05/07/2023 7:28 AM EST To view the final report click the scan hyperlink below. us Harley Huerta MD LAB AMB PATH/CYTO ORDERABLES Final Result [facility] [address] [place] [address], from Last 3 Months or Most Recently Relevant to Health Maintenance Insurance [facility] PPO Care Teams Ticket Scheduler Relationship Specialty Start Date End Date Edy Pedersen [address] [place] [address] PCP - General
== END 2025-01-20 15:25 | disposition home or self-care (01) ==
LOC: HO.HPODS 14:44
PROVIDERS: PCP Internal Medicine; Visit Provider Student in an Organized Health Care Education/Training Program
DX: B35.1 Tinea unguium (principal); M20.11 Hallux valgus (acquired), right foot; M20.12 Hallux valgus (acquired), left foot; M20.41 Other hammer toe(s) (acquired), right foot; M20.42 Other hammer toe(s) (acquired), left foot
CPT/HCPCS: 11720; 99203

== ENCOUNTER 2025-01-20 14:43 | Outpatient (REF) | payer OTHER, SELFPAY | END 2025-01-20 14:44 | disposition home or self-care (01) | LOC: HO.LAB 14:43 | PROVIDERS: PCP Internal Medicine; Visit Provider Student in an Organized Health Care Education/Training Program | DX: B35.1 Tinea unguium (principal); M20.11 Hallux valgus (acquired), right foot; M20.12 Hallux valgus (acquired), left foot; M20.41 Other hammer toe(s) (acquired), right foot; M20.42 Other hammer toe(s) (acquired), left foot | CPT/HCPCS: 87101; 87220 ==

== ENCOUNTER 2025-01-20 15:24 | Outpatient (REF) | payer OTHER, SELFPAY | END 2025-01-20 15:25 | disposition home or self-care (01) | LOC: HO.LNP 15:24 | PROVIDERS: Visit Provider Student in an Organized Health Care Education/Training Program | DX: B35.1 Tinea unguium (principal); L60.2 Onychogryphosis; M21.612 Bunion of left foot; M20.11 Hallux valgus (acquired), right foot; M20.12 Hallux valgus (acquired), left foot; M20.41 Other hammer toe(s) (acquired), right foot; M20.42 Other hammer toe(s) (acquired), left foot | CPT/HCPCS: 11720; 88304; 88312 ==

== ENCOUNTER 2025-01-27 12:29 | Outpatient (REF) | payer OTHER, SELFPAY ==
[2025-01-27 12:37] LABS: MANUAL DIFF FLAG NO
[2025-01-27 12:56] LABS: Hematocrit 38.7 % (37.0-47.0); Hemoglobin 13.5 g/dl (12.0-16.0); Imm Gran Abs Auto 0.01 X10*3/uL (0.00-0.03); Imm Gran Pct Auto 0.2 % (0.0-0.4); Lymphocytes Absolute Auto 1.3 X10*3/uL (1.2-4.9); Mean Corpuscular HGB Conc 34.9 g/dl (31.0-35.0); Mean Corpuscular Hemoglobin 32.4 pg (27.0-33.0); Mean Corpuscular Volume 92.8 fL (80.0-98.0); NRBC Abs Auto 0.000 X10*3/uL (0.0-0.012); NRBC Pct Auto 0.0 /100WBC (0.0-0.2); Platelet Count 227 X10*3/uL (160-400); Red Blood Count 4.17 X10*6/uL (4.20-5.50); White Blood Count 4.9 X10*3/uL (4.8-10.8)
[2025-01-27 13:34] LABS: Alanine Aminotransferase 38 U/L (0-31); Anion Gap 10 (12-20); Aspartate Amino Transferase 31 U/L (5-31); Blood Urea Nitrogen 24 mg/dL (9-16); Calcium 9.2 mg/dL (8.4-10.2); Carbon Dioxide 28 mmol/L (22-29); Chloride 108 mmol/L (96-108); Cholesterol 202 mg/dL (<200); Estimated Glomerular Filt Rate > 60; HDL Cholesterol 57 mg/dL (>40); Potassium 4.2 mmol/L (3.3-5.1); Sodium 142 mmol/L (135-145); Triglycerides 227 mg/dL (<150)
--- OUTSIDE RECORDS SUMMARY | 2025-01-27 15:02 | XMS_ITS | Patient Health Record ---
Author Organization [facility] Address [address] [place] [address] Care Team Providers Care Air Traffic Control Supervisor Name Role Phone Fahad (RETIRED) Gadiel SUE [...] Problem Status W/U Status Risk Notes Problem [id number] Colon cancer screening (Z12.11) Active confirmed Problem [id number] Right lower quadrant abdominal pain (R10.31) Active confirmed Plan Of Treatment Future Test Test Name Order Date COLONOSCOPY 07/11/2016 Insurance Providers Payer Name Payer Address Payer Phone Subscriber Number Group Number Insured Name Patient Relationship to Insured Coverage Start Date Coverage End Date [facility] [address] [facility] [place] [phone] [id number] MADONNA ANGELES Self - patient is the insured Medical (General) History Medical History History ICD Code exercise-induced asthma cardiac arrhythmia, bradycardia Surgical History Surgery Date(Month/Year) tonsillectomy wisdom teeth extraction eye surgery
--- OUTSIDE RECORDS SUMMARY | 2025-01-27 15:02 | XMS_ITS | Clinical Summary ---
Author Organization [facility] Address [address] [place] [address] Care Team Providers Care Housekeeper [facility] Name Role Phone Edy Pedersen Primary Care Provider [phone] [phone] Allergies Active Allergy Reactions Criticality Noted Date [...] a week. 24 tablet 3 09/17/2024 Active Social History Tobacco Use Types Packs/Day [...] EDT Office Visit [facility] Department Of Bed Setter [place] [address] [place] [address] Harley Hureta MD [address] [place] [address] Health Maintenance Due Date Last Done Comments Hepatitis C Virus Screening 1966 HIV Screening 1979 DTaP/Tdap/Td Vaccines (1 - Tdap) 1985 Hepatitis B Vaccines (1 of 3 - 19+ 3-dose series) 1985 Mammogram 2006 Colonoscopy 2011 Pneumococcal Vaccines 50+ (1 of 1 - PCV) 02/06/2016 Zoster (Shingles) Vaccine (1 of 2) 02/06/2016 Influenza Vaccine 12/04/2024 COVID-19 Vaccine (2 - season) 01/04/202505/2022 Pap Smear (Ages 21-65) 04/24/2026 04/24/2023, 2022 Procedures Procedure Name Priority Date/Time Associated Diagnosis Comments THINPREP PAP TEST (MANUAL PLATE FILLER) WITH HPV REFLEX Routine 04/24/2023 4:46 PM [...] MD LAB AMB PATH/CYTO ORDERABLES Final Result [facility] [address] [place] [address], from Last 3 Months or Most Recently Relevant to Health Maintenance Insurance [facility] PPO Care Teams Housekeeper [facility] Relationship Specialty Start Date End Date Edy Pedersen [address] [place] [address] PCP - General
--- OUTSIDE RECORDS SUMMARY | 2025-01-27 15:02 | XMS_ITS | Encounter Summary ---
Author Organization [facility] Address [address] [place] [address] Care Team Providers Care Investigation Officer Name Role Phone Edy Pedersen Primary Care Provider +1 [phone] Reason for Visit * Reason Onset Date Comments Other 09/02/2024 Encounter Details Date Type Department Care Team (Late st Contact Info) Description 09/02/2024 Telephone Edy Gregory Department Of Contractor Broomcorn Threshing [place] [address] [place] [address] Harley Huerta MD [address] [place] [address] Other Social History Tobacco Use Types Packs/Day [...] EDT Office Visit Edy Gregory Department Of Contractor Broomcorn Threshing [place] [address] [place] [address] Harley Huerta MD [address] [place] [address] documented as of this encounter Visit Diagnoses Not on filedocumented in this encounter Care Teams Investigation Officer Relationship Specialty Start Date End Date Edy Pedersen [address] [place] [address] PCP - General documented as of this encounter
== END 2025-01-27 12:30 | disposition home or self-care (01) ==
LOC: HO.LAB 12:29
PROVIDERS: PCP Internal Medicine; Visit Provider Internal Medicine
DX: I44.1 Atrioventricular block, second degree (principal); J45.990 Exercise induced bronchospasm; R00.1 Bradycardia, unspecified; Z13.220 Encounter for screening for lipoid disorders; Z13.1 Encounter for screening for diabetes mellitus; Z78.0 Asymptomatic menopausal state; Z13.6 Encounter for screening for cardiovascular disorders; Z13.29 Encounter for screening for other suspected endocrine disorder
CPT/HCPCS: 36415; 80048; 80061; 82306; 84450; 84460; 85025

== ENCOUNTER 2025-02-24 15:27 | Outpatient (REF) | payer OTHER, SELFPAY ==
--- OUTSIDE RECORDS SUMMARY | 2025-02-24 21:40 | XMS_ITS | Patient Health Record ---
Author Organization [facility] Address [address] [place] [address] Care Team Providers Care Research Manager Name Role Phone Fahad (RETIRED) Gadiel SUE Primary Care Provide Davide Marsh Jr Unavailable [phone] Allergies Allergen (clinical drug ingredient) Drug/Non Drug [...] MoviPrep 100 GM as directed before colonoscopy Orally; Duration: 1 dose 07/11/2016 Active Microgestin 24 Fe [...] Problem Status W/U Status Risk Notes Problem Colon cancer screening (315623822) Colon cancer screening (Z12.11) Active confirmed Problem Right lower quadrant pain (608733234) Right lower quadrant abdominal pain (R10.31) Active confirmed Plan Of Treatment Future Test Test Name Order Date COLONOSCOPY 07/11/2016 Insurance Providers Payer Name Payer Address Payer Phone Subscriber Number Group Number Insured Name Patient Relationship to Insured Coverage Start Date Coverage End Date [facility] [address] [facility] [place] [phone] [id number] MADONNA ANGELES Self - patient is the insured Medical (General) History Medical History History ICD Code exercise-induced asthma cardiac arrhythmia, bradycardia Surgical History Surgery Date(Month/Year) tonsillectomy wisdom teeth extraction eye surgery
--- OUTSIDE RECORDS SUMMARY | 2025-02-24 21:40 | XMS_ITS | Clinical Summary ---
Author Organization [facility] Address [address] [place] [address] Care Team Providers Care Yardage Control Operator Name Role Phone Edy Pedersen Primary Care Provider +1 -[phone] Allergies Active Allergy Reactions Criticality Noted Date [...] Encounters Date Type Department Care Team Description 02/04/2025 Telephone Edy Gregory Department of SEISMIC COMPUTER [address] [place] [address] Harley Huerta MD from Last 3 Months [...] Pap Smear (Ages 21-65) 04/24/2026 04/24/2023, 2022 RSV Vaccine 50 years and old er and Patients (1 - 1-dose 75+ series) 2041 Procedures Procedure Name Priority Date/Time Associated Diagnosis Comments THINPREP PAP TEST (OPTO MECHANICAL ENGINEER) WITH HPV REFLEX Routine 04/24/2023 4:46 PM [...] MD LAB AMB PATH/CYTO ORDERABLES Final Result [facility] [address] [place] [address], from Last 3 Months or Most Recently Relevant to Health Maintenance Care Teams Yardage Control Operator Relationship Specialty Start Date End Date Edy Pedersen [address] [place] [facility] [place] [facility] [address] PCP - General
--- OUTSIDE RECORDS SUMMARY | 2025-02-24 21:40 | XMS_ITS | Encounter Summary ---
Author Organization [facility] Address [address] [place] [address] Care Team Providers Care Accounting Tutor Name Role Phone Edy Pedersen Primary Care Provider +1 -[phone] Encounter Details Date Type Department Care Team (Late st Contact Info) Description 02/04/2025 Telephone Edy Gregory Department of ADVERTISING SOLICITOR [place] [address] [place] [address] [address] [place] [address] Harley Huerta MD [address] [place] [address] Social History Tobacco Use Types Packs/Day Years Used Date Smoking Tobacco: Never Assessed Comments No Sex and Gender Information Value Date Recorded Sex Assigned at Female 09/15/2024 5:50 PM EDT Legal Sex Female 4:20 PM EDT Gender Identity Female 09/15/2024 5:50 PM EDT Sexual Orientation Heterosexual (straight) 09/15 5:50 PM EDT documented as of this encounter Plan of Treatment Not on file documented as of this encounter Visit Diagnoses Not on filedocumented in this encounter Care Teams Accounting Tutor Relationship Specialty Start Date End Date Edy Pedersen [address] [place] [address] PCP - General documented as of this encounter
--- OUTSIDE RECORDS SUMMARY | 2025-02-24 21:40 | XMS_ITS | Encounter Summary ---
Author Organization [facility] Address [address] [place] [address] Care Team Providers Care Continuous Drier Operator Name Role Phone Edy Pedersen Primary Care Provider +1 [phone] Reason for Visit * Reason Onset Date Comments Other 09/02/2024 Encounter Details Date Type Department Care Team (Late st Contact Info) Description 09/02/2024 Telephone Edy Gregory Department Of Marketing And Outreach Coordinator [place] [address] [place] [address] Harley Huerta MD [address] [place] [address] Other Social History Tobacco Use Types Packs/Day [...] documented in this encounter Plan of Treatment Not on file documented as of this encounter Visit Diagnoses Not on filedocumented in this encounter Care Teams Continuous Drier Operator Relationship Specialty Start Date End Date Edy Pedersen [address] [place] [address] PCP - General documented as of this encounter
== END 2025-02-24 15:28 | disposition home or self-care (01) ==
LOC: HO.MAMMO 15:27
PROVIDERS: PCP Internal Medicine; Visit Provider Internal Medicine
DX: Z12.31 Encounter for screening mammogram for malignant neoplasm of breast (principal)
CPT/HCPCS: 77063; 77067

== ENCOUNTER → 2025-02-24 15:30 | Outpatient (BNV) | payer OTHER, SELFPAY | PROVIDERS: PCP Internal Medicine; Visit Provider Radiology Body Imaging | DX: Z12.31 Encounter for screening mammogram for malignant neoplasm of breast (principal) | CPT/HCPCS: 77063; 77067 ==

== ENCOUNTER 2025-04-21 14:55 | Outpatient (AMB) | payer OTHER, SELFPAY ==
--- NOTE | 2025-04-21 15:26 | A.OFFVIS_ITS ---
Intake Visit Reasons: Follow Up Hyptrophic toenail Intake Note: Marly is a 60 year old female who presents today for a follow up on her Tinea unguium. at her last visit she her toe nails where debrided and specimens where sent out for pathology and microbiology. Patient reports she is doing well, she has no complaints of pain or discomfort at this time. Allergies latex (LATEX) Allergy (Intermediate, Verified 04/21/25 15:27) RASH Sulfa (Sulfonamide Antibiotics) (Sulfa(Sulfonamide Antibiotics)) Allergy (Unknown, Verified 04/21/25 15:27) UNKNOWN HPI HPI Follow Up Hyptrophic toenail: Details: 59-year-old female seen today for 3 month follow up evaluation of nail discoloration to her left foot. She has been applying the topical ciclopirox however she mentions that she was prescribed a cream and not the nail lacquer. She has noted some very mild improvement to the left big toes nail so far. History: She notes a history of fungal toenails and has tried [id number] topical treatment in the past however did not see any improvement. She has severe around her however stopped running due to her knees in her bunions. She states that she does not wear open toed shoe wear due to her bunions and her fungal toenails to the left foot. [facility] Medical History (Updated 01/20/25 @ 15:38 by Zack Morgan DPM) Hypertrophic toenail Mobitz (type) I (Wenckebach's) atrioventricular block Mobitz type 1 second degree atrioventricular block Exercise-induced asthma PVC (premature ventricular contraction) Surgical History (Updated 12/24/24 @ 13:36 by Kim Jimenez MD) [place] teeth removed H/O eye surgery Hx of tonsillectomy Family History (Updated 12/24/24 @ 13:35 by Kim Jimenez MD) Paternal Grandfather No problems noted. Mother Rheumatic arteritis Eczema CVA (cerebral vascular accident) Father Lung cancer Sister Hypothyroidism (acquired) Social History Housing: House Alcohol intake: current Alcohol intake frequency: a few times a month Patient Tobacco Use Status: Never used Tobacco e-Cigarette/Vaping Use: Never Used service: No Current occupational status: employed Cognitive needs: No Hearing needs: No Vision needs: Yes (rx glasses) Review of Systems Const All systems reviewed & are unremarkable except as noted in HPI and below Physical Exam Extrem Other: *Bilateral Lower Extremity Focused Foot Exam Vascular: DP/PT 2/4, CFT<3s to digits, TG warm to cool, no pedal edema, pedal hair present Derm: Skin: No open lesions, ulcerations, or calluses. Interdigital spaces: Clear, no maceration or fungal infection. Nails: Dystrophic thickened left hallux left 3rd and left 5th toenails. Left hallux nail with subungual debris and discoloration to 50% of the lateral half of the nail. Neuro: Protective sensation grossly intact to bilateral lower extremities. Msk: Deformities: Moderate right hallux track bound hallux valgus deformity, dorsiflexion and proximally 15 degrees. Moderate to severe left hallux valgus deformity, track bound, 15 degrees of dorsiflexion. Bilateral 2nd MTPJ extension deformity, negative Roldan test bilaterally. No pressure/keratotic lesion to the plantar aspect of the 2nd metatarsal head. Muscle strength: 5/5 in all muscle groups. Gait: Normal, no antalgic or steppage gait observed. Footwear Assessment: Shoes inspected; appropriate fit, no excessive wear, or foreign objects noted. Results Reviewed Results Reviewed: 01/20/2025 Fungus Cult Hair/Skin/Nail Final 02/24/25-1035 No fungal growth at 4 Weeks 01/21/2025 Diagnosis Nail, left hallux, excision: Onychomycosis Assessment & Plan Assessment & Plan (1) Tinea unguium: Comment: Left 1st 3rd and 5th toenails Code(s): B35.1 - Tinea unguium Category: Medical Plan: * Reviewed nail clipping results of the left hallux. * Discussed treatment options including topical treatment versus oral antifungal medications. * Rx ciclopirox. Explained that it may take 3-6 months to see improvement. If she does not find improvement or the symptoms worsen, she may be recommended oral treatment at that time. * Continue anti-fungal hygeine * Follow up in 3 months. (2) Hallux valgus, acquired, bilateral: Code(s): M20.11 - Hallux valgus (acquired), right foot; M20.12 - Hallux valgus (acquired), left foot Category: Medical Plan: * Explained the current clinical progression of her bunion deformity which is now resulting in arthritic changes to her MPJ. The patient states that she does have pain from it however is not interested in any surgical treatment at this time. * Continue bunion sleeves to slow down progression of the deformity. * Discussed various surgical options if it is something she would like to pursue in the future. Medications: New 2 ciclopirox 8% Apply to fungal toenails daily. Remove build-up at the end of the week. 1 appl topical BEDTIME 6.6 mL 3RF onychomycosis 4 months B35.1 - Tinea unguium Coding Level of Care Code Est Pt Level 3 (96388) Diagnoses Tinea unguium B35.1 Hallux valgus, acquired, bilateral M20.11; M20.12
--- OUTSIDE RECORDS SUMMARY | 2025-04-21 19:52 | XMS_ITS | Clinical Summary ---
Author Organization [facility] Address [address] [place] [address] Care Team Providers Care Telegraph Messenger Name Role Phone Edy Pedersen Primary Care Provider +1 -[phone] Allergies Active Allergy Reactions Criticality Noted Date [...] Date/Time Associated Diagnosis Comments THINPREP PAP TEST (POTATO CHIP PROCESSING SUPERVISOR) WITH HPV REFLEX Routine 04/24/2023 4:46 PM EST Unsatisfactory cervical Papanicolaou smear from Last 3 Months or Most Recently Relevant to Health Maintenance Results * ThinPrep Pap Test with HPV Reflex on ASCUS (04/24/2023 4:46 PM EST) 04/24/2023 4:46 PM EST Narrative [facility] - 05/07/2023 7:28 AM EST To view the final report click the scan hyperlink below. us Harley Huerta MD LAB AMB PATH/CYTO ORDERABLES Final Result [facility] [address] [place] [address], from Last 3 Months or Most Recently Relevant to Health Maintenance Care Teams Telegraph Messenger Relationship Specialty Start Date End Date Edy Pedersen [facility] [address] [place] [address] PCP - General
--- OUTSIDE RECORDS SUMMARY | 2025-04-21 19:52 | XMS_ITS | Patient Health Record ---
Author Organization [facility] Address [address] [place] [id number] Care Team Providers Care House Manager Name Role Phone Fahad (RETIRED) Gadiel SUE Primary Care Provide r Davide De Anda Jr Unavailable [phone] Allergies Allergen (clinical drug ingredient) Drug/Non Drug Allergy documented on EMR Reaction Allergy Type Onset Date Status sulfamethoxazole / trimethoprim Bactrim Unknown Drug Allergy Active Reason For Referral No Information Medications Medication SIG (Take, Route, Frequency, Duration) Notes Start Date End Date Status Melatin 3-1 MG Tablet Orally Active Calcium + D3 600-200 MG-UNIT Tablet Orally Active Multi Vitamin/Minerals - Tablet Orally Active Probiotic - Capsule Orally Active MoviPrep 100 GM Solution Reconstituted as directed before colonoscopy Orally; Duration: 1 dose 07/11/2016 Active Microgestin 24 Fe 1-20 MG-MCG Tablet Orally Active Aspir-81 81 MG Tablet Delayed Release 1 tablet Orally Once a day Active Vitamin B 12 Active Nasacort Allergy 24HR 55 MCG/ACT Aerosol 1 puff in each nostril Nasally Once a day Active ProAir HFA 108 (90 Base) MCG/ACT Aerosol Solution 2 puffs as needed Inhalation every 4 hrs Active Ambien CR 12.5 MG Tablet Extended Release 1 tablet at bedtime as needed Orally Once a day Active Social History Social History Additional Details Category Social Info Options Details Miscellaneous: Marital status: single 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) Problems Problem Type SNOMED Code ICD Code Onset Dates Problem Status W/U Status Risk Notes Problem Colon cancer screening (150839073) Colon cancer screening (Z12.11) Active confirmed Problem Right lower quadrant pain (604763395) Right lower quadrant abdominal pain (R10.31) Active confirmed Plan Of Treatment Future Test Test Name Order Date COLONOSCOPY 07/11/2016 Insurance Providers Payer Name Payer Address Payer Phone Subscriber Number Group Number Insured Name Patient Relationship to Insured Coverage Start Date Coverage End Date [facility] [address] [facility] [place] [phone] [id number] MADONNA ANGELES Self - patient is the insured Medical (General) History Medical History History ICD Code exercise-induced asthma cardiac arrhythmia, bradycardia Surgical History Surgery Date(Month/Year) tonsillectomy wisdom teeth extraction eye surgery
== END 2025-04-21 15:51 | disposition home or self-care (01) ==
LOC: HO.HPODS 14:55
PROVIDERS: PCP Internal Medicine; Visit Provider Student in an Organized Health Care Education/Training Program
DX: B35.1 Tinea unguium (principal); M20.11 Hallux valgus (acquired), right foot; M20.12 Hallux valgus (acquired), left foot
CPT/HCPCS: 99213